=== PATIENT | female | born 1980 | race Caucasian/White ===

== ENCOUNTER → 2017-10-15 08:17 | Outpatient (CLI) | payer MEDICAID, SELFPAY ==
[2017-10-16 11:20] LABS: Hepatitis C Ab w Rflx HCV PCR Reactive (NEGAT)
[2017-10-19 14:27] LABS: HCV RNA Detection Quantitative Undetected IU/mL (UNDECT)
== END ==
PROVIDERS: PCP Nurse Practitioner Family; Visit Provider Nurse Practitioner Family
DX: Z86.19 Personal history of other infectious and parasitic diseases (principal)
CPT/HCPCS: 36415; 86803; 87522

== ENCOUNTER 2017-12-20 10:26 | Emergency (ER) | payer MEDICAID, SELFPAY ==
[2017-12-20 10:34] VITALS: BP 109/55; PULSE 86; RESP 16; TEMP 36.7; O2SAT 95
--- NOTE | 2017-12-20 10:47 | W.ED.GENAD ---
Discharge Plan Disposition Patient Disposition: HOME Condition: Improving Discharge Details Chief Complaint: FacialProb Clinical Impression: Odontalgia Primary Care Provider: Elodia Napier ED Provider: Alonzo Pereira Home Meds and New Rx's Prescriptions: New penicillin V potassium 500 mg tablet 500 mg PO TID 10 Days Qty: 30 RF: 0 Continue norgestimate-ethinyl estradiol [Ortho Tri-Cyclen LO (28)] 1 EACH tablet 1 tab-cap PO DAILY Qty: 3 RF: 5 buprenorphine-naloxone [Suboxone] 1 EACH film 1 ea Sublingual DAILY RF: 0 buprenorphine-naloxone [Suboxone] 1 EACH film 1 ea Sublingual DAILY RF: 0 trazodone 50 MG tablet 100 mg PO HS Qty: 90 RF: 4 clonidine HCl 0.1 MG tablet 0.1 mg PO HS Qty: 90 RF: 3 fluoxetine 40 MG capsule 40 mg PO DAILY Qty: 90 RF: 3 omeprazole 20 MG tablet,delayed release (DR/EC) 20 mg PO DAILY Qty: 90 RF: 3 acetaminophen [Acetaminophen Extra Strength] 500 MG tablet 1,000 mg PO TID Qty: 180 RF: 0 Discharge Instructions Instructions: Toothache (ED) Additional Instructions: You may follow-up with local dentistry. Please see enclosed sheet for dental resources. There are also dentist available at the [facility] in [facility]. Take antibiotics as prescribed. Apply moist, warm compress to area. Please continue warm, salt water gargles to aid in speed of healing. Take antibiotics as prescribed. Continue regular medications. May continue Tylenol as needed for increased pain. Medical Decision Making 37-year-old female with poor dentition and dental caries presents with a day and a half of left face swelling. She did describe some associated tearing of her eye but there is no evidence of a conjunctivitis. Consistent with odontogenic infection and will treat with a course of penicillin. Patient will reestablish dental care in this area. She is given a list for dental resources in the [facility]. HPI General Mode of arrival: ambulatory. Date/Time Provider Initiated Documentation: 12/20/17 10:28. Limitations to Documentation: no limitations. Information obtained by: patient. History of Present Illness 37 year old F presents to the emergency department with the chief complaint of Left face swelling, described as moderate, Quality is described as aching, and is localized to the face and left. Patient reports no radiation. Patient started experiencing this hour(s) and it has been constant. other things that improve symptom(s), (Tylenol and heat) Eating worsens symptoms . Patient notes denies fever/chills and headaches. HPI Narrative: Left face swelling Related Data Home Medications Medication Instructions Recorded Confirmed acetaminophen [Acetaminophen Extra 1,000 mg PO TID #180 tablet 08/25/16 12/20/17 Strength] norgestimate-ethinyl estradiol 1 tab-cap PO DAILY #3 pack 09/09/16 12/20/17 [Ortho Tri-Cyclen LO (28)] buprenorphine-naloxone [Suboxone] 1 ea SUBLINGUAL DAILY film 04/01/17 12/20/17 buprenorphine-naloxone [Suboxone] 1 ea SUBLINGUAL DAILY film 04/01/17 12/20/17 trazodone 100 mg PO HS #90 tab-cap 04/01/17 12/20/17 clonidine HCl 0.1 mg PO HS #90 tab-cap 10/15/17 12/20/17 fluoxetine 40 mg PO DAILY #90 tab-cap 10/15/17 12/20/17 omeprazole 20 mg PO DAILY #90 tab-cap 10/15/17 12/20/17 penicillin V potassium 500 mg PO TID 10 Days #30 tab 12/20/17 Previous Rx's Medication Instructions Recorded acetaminophen [Acetaminophen Extra 1,000 mg PO TID #180 tablet 08/25/16 Strength] trazodone 100 mg PO HS #90 tab-cap 04/01/17 clonidine HCl 0.1 mg PO HS #90 tab-cap 10/15/17 fluoxetine 40 mg PO DAILY #90 tab-cap 10/15/17 omeprazole 20 mg PO DAILY #90 tab-cap 10/15/17 penicillin V potassium 500 mg PO TID 10 Days #30 tab 12/20/17 Allergies Allergy/AdvReac Type Severity Reaction Status Date / Time latex AdvReac Intermediate Hives Verified 12/20/17 10:40 Pertussis Vaccines AdvReac Intermediate Skin Rash Verified 12/20/17 10:40 General Stated Complaint: FacialProb DEL: 3 Review of Systems Review of Systems 6 systems reviewed and otherwise negative PFSH Family History Mother Hyperthyroidism Mental disorder Neoplasm Father Substance abuse Maternal Aunt No problems noted. Maternal Aunt No problems noted. Maternal Aunt No problems noted. Grandfather Neoplasm Grandfather Neoplasm Other Liver disease Medical History Opioid dependence on agonist therapy (Chronic) Opioid use disorder (Chronic) Tobacco use disorder (Chronic) Irregular menstrual bleeding (Inactive 04/01/17) Hepatitis C antibody test positive (Chronic 04/10/15) Gastroesophageal reflux disease (Chronic) Counseling for control, oral contraceptives (Chronic 09/09/16) Anxiety and depression (Chronic) Hepatitis C antibody test positive Opioid abuse Tobacco use Social History Smoking/Tobacco Use Status: Current every day Surgical History section Exam Narrative Exam Narrative: GEN: awake, alert, oriented 3. Pleasant, well groomed, interactive. HEAD: Normocephalic, atraumatic ENT: Mucous membranes moist, oropharynx reveals dental caries, left maxilla buccal aspect swelling without fluctuance. The uvula is midline, no asymmetry or exudates, External ear exam unremarkable EYES: PERRL, EOMI NECK: Full ROM, no TOBIN, no menigismus CHEST/RESP: Nontender, clear to auscultation bilateral, no wheeze/rhonchi/rales CARDIOVASCULAR: RRR, no murmur, rub randell. 2+ Rad pulse bilateral Neuro: Grossly normal neurologic exam, conversant, interactive. Psych: Speech fluent, thoughts congruent, affect normal Course Vital Signs Temperature 36.7 C 12/20/17 10:34 Pulse 86 12/20/17 10:34 Respiratory Rate 16 12/20/17 10:34 Blood Pressure 109/55 L 12/20/17 10:34 Pulse Oximetry 95 12/20/17 10:34 Temperature 36.7 C 12/20/17 10:34 Temperature Source Skin 12/20/17 10:34 Pulse 86 12/20/17 10:34 Respiratory Rate 16 12/20/17 10:34 Respiratory Effort 12/20/17 10:37 Blood Pressure 109/55 L 12/20/17 10:34 Pulse Oximetry 95 12/20/17 10:34 Pain Level 8 12/20/17 10:34
--- NOTE | 2017-12-20 10:50 | ED.GENADUL_ITS ---
Discharge Plan Disposition Patient Disposition: HOME Condition: Improving Discharge Details Chief Complaint: FacialProb Clinical Impression: Odontalgia Primary Care Provider: Elodia Napier ED Provider: Alonzo Pereira Home Meds and New Rx's Prescriptions: New penicillin V potassium 500 mg tablet 500 mg PO TID 10 Days Qty: 30 RF: 0 Continue norgestimate-ethinyl estradiol [Ortho Tri-Cyclen LO (28)] 1 EACH tablet 1 tab-cap PO DAILY Qty: 3 RF: 5 buprenorphine-naloxone [Suboxone] 1 EACH film 1 ea Sublingual DAILY RF: 0 buprenorphine-naloxone [Suboxone] 1 EACH film 1 ea Sublingual DAILY RF: 0 trazodone 50 MG tablet 100 mg PO HS Qty: 90 RF: 4 clonidine HCl 0.1 MG tablet 0.1 mg PO HS Qty: 90 RF: 3 fluoxetine 40 MG capsule 40 mg PO DAILY Qty: 90 RF: 3 omeprazole 20 MG tablet,delayed release (DR/EC) 20 mg PO DAILY Qty: 90 RF: 3 acetaminophen [Acetaminophen Extra Strength] 500 MG tablet 1,000 mg PO TID Qty: 180 RF: 0 Discharge Instructions Instructions: Toothache (ED) Additional Instructions: You may follow-up with local dentistry. Please see enclosed sheet for dental resources. There are also dentist available at the [facility] in [facility]. Take antibiotics as prescribed. Apply moist, warm compress to area. Please continue warm, salt water gargles to aid in speed of healing. Take antibiotics as prescribed. Continue regular medications. May continue Tylenol as needed for increased pain. Medical Decision Making 37-year-old female with poor dentition and dental caries presents with a day and a half of left face swelling. She did describe some associated tearing of her eye but there is no evidence of a conjunctivitis. Consistent with odontogenic infection and will treat with a course of penicillin. Patient will reestablish dental care in this area. She is given a list for dental resources in the [facility]. HPI General Mode of arrival: ambulatory . Date/Time Provider Initiated Documentation: 12/20/17 10:28 . Limitations to Documentation: no limitations . Information obtained by: patient . History of Present Illness 37 year old F presents to the emergency department with the chief complaint of Left face swelling, described as moderate, Quality is described as aching, and is localized to the face and left. Patient reports no radiation. Patient started experiencing this hour(s) and it has been constant. other things that improve symptom(s), (Tylenol and heat) Eating worsens symptoms . Patient notes denies fever/chills and headaches. HPI Narrative: Left face swelling Related Data Home Medications Medication Instructions Recorded Confirmed acetaminophen [Acetaminophen Extra 1,000 mg PO TID #180 tablet 08/25/16 12/20/17 Strength] norgestimate-ethinyl estradiol 1 tab-cap PO DAILY #3 pack 09/09/16 12/20/17 [Ortho Tri-Cyclen LO (28)] buprenorphine-naloxone [Suboxone] 1 ea SUBLINGUAL DAILY film 04/01/17 12/20/17 buprenorphine-naloxone [Suboxone] 1 ea SUBLINGUAL DAILY film 04/01/17 12/20/17 trazodone 100 mg PO HS #90 tab-cap 04/01/17 12/20/17 clonidine HCl 0.1 mg PO HS #90 tab-cap 10/15/17 12/20/17 fluoxetine 40 mg PO DAILY #90 tab-cap 10/15/17 12/20/17 omeprazole 20 mg PO DAILY #90 tab-cap 10/15/17 12/20/17 penicillin V potassium 500 mg PO TID 10 Days #30 tab 12/20/17 Previous Rx's Medication Instructions Recorded acetaminophen [Acetaminophen Extra 1,000 mg PO TID #180 tablet 08/25/16 Strength] trazodone 100 mg PO HS #90 tab-cap 04/01/17 clonidine HCl 0.1 mg PO HS #90 tab-cap 10/15/17 fluoxetine 40 mg PO DAILY #90 tab-cap 10/15/17 omeprazole 20 mg PO DAILY #90 tab-cap 10/15/17 penicillin V potassium 500 mg PO TID 10 Days #30 tab 12/20/17 Allergies Allergy/AdvReac Type Severity Reaction Status Date / Time latex AdvReac Intermediate Hives Verified 12/20/17 10:40 Pertussis Vaccines AdvReac Intermediate Skin Rash Verified 12/20/17 10:40 General Stated Complaint: FacialProb DEL: 3 Review of Systems Review of Systems 6 systems reviewed and otherwise negative PFSH Family History Mother Hyperthyroidism Mental disorder Neoplasm Father Substance abuse Maternal Aunt No problems noted. Maternal Aunt No problems noted. Maternal Aunt No problems noted. Grandfather Neoplasm Grandfather Neoplasm Other Liver disease Medical History Opioid dependence on agonist therapy (Chronic) Opioid use disorder (Chronic) Tobacco use disorder (Chronic) Irregular menstrual bleeding (Inactive 04/01/17) Hepatitis C antibody test positive (Chronic 04/10/15) Gastroesophageal reflux disease (Chronic) Counseling for control, oral contraceptives (Chronic 09/09/16) Anxiety and depression (Chronic) Hepatitis C antibody test positive Opioid abuse Tobacco use Social History Smoking/Tobacco Use Status: Current every day Surgical History section Exam Narrative Exam Narrative: GEN: awake, alert, oriented 3. Pleasant, well groomed, interactive. HEAD: Normocephalic, atraumatic ENT: Mucous membranes moist, oropharynx reveals dental caries, left maxilla buccal aspect swelling without fluctuance. The uvula is midline, no asymmetry or exudates, External ear exam unremarkable EYES: PERRL, EOMI NECK: Full ROM, no TOBIN, no menigismus CHEST/RESP: Nontender, clear to auscultation bilateral, no wheeze/rhonchi/rales CARDIOVASCULAR: RRR, no murmur, rub randell. 2+ Rad pulse bilateral Neuro: Grossly normal neurologic exam, conversant, interactive. Psych: Speech fluent, thoughts congruent, affect normal Course Vital Signs Temperature 36.7 C 12/20/17 10:34 Pulse 86 12/20/17 10:34 Respiratory Rate 16 12/20/17 10:34 Blood Pressure 109/55 L 12/20/17 10:34 Pulse Oximetry 95 12/20/17 10:34 Temperature 36.7 C 12/20/17 10:34 Temperature Source Skin 12/20/17 10:34 Pulse 86 12/20/17 10:34 Respiratory Rate 16 12/20/17 10:34 Respiratory Effort 12/20/17 10:37 Blood Pressure 109/55 L 12/20/17 10:34 Pulse Oximetry 95 12/20/17 10:34 Pain Level 8 12/20/17 10:34
== END 2017-12-20 11:01 | disposition home or self-care (01) ==
PROVIDERS: Emergency Provider Emergency Medicine; PCP Nurse Practitioner Family
DX: R68.84 Jaw pain (principal); K04.7 Periapical abscess without sinus; K02.9 Dental caries, unspecified
CPT/HCPCS: 99283

== ENCOUNTER 2018-09-15 14:58 | Outpatient (CLI) | payer MEDICAID, SELFPAY ==
--- NOTE | 2018-09-15 16:35 | CCCE_ITS ---
Date of service: 09/15/18 Time of Service: 16:36 Comprehensive Care Clinic Note Note: [facility] [address] [place] [address] [facility] Name: Radha Murdock Date of : 1980 Date of Service: 09/15/2018 SUBJECTIVE: Radha made an appointment today to request further screening testing to be sure that the HCV viral load is remaining negative and/or she has not been re-infected as her significant other and sexual partner remains chronic active HCV. They do not use barrier protection. She had a negative HCV in in 2017 without treatment and it was felt she cleared the virus after delivery of her second child. Her child remains negative. The initial testing with first + HCB Ab in 2015 with a viral load of 7 million when she was . She was n ever an IV user and so her OB felt she had sexual transmission because her sexual partner is + ROS: She states she is feeling fairly well physically, she remains with some Mood swings and anxiety and feels her medications are fairly stable at this time but she has not been able to remain gainfully employed and has filed for disability ? mainly on the basis of her bipolar dx. Past Medical/Surgical/Psychiatric History: Opiate Use Disorder is in remission with MAT w Suboxone through [facility]. Mood disorder and anxiety/PTSD w RXing by PCP and she has outside counseling. Has had ZOO VETERINARIAN abnormalities and is under the care of [facility]. She is S/P a C section. , SAB 1, TAB 1, 1 C section, 2 living children. Currently sexually active taking OCP but no barrier. Takes her OCPs regularly. Menses times w pills. Allergies/Sensitivities: NKDA Current Medications: Prozac 40 mg a day, Suboxone 6 mg a day, Trazadone 50 mg a day, Clonidine 0.2 mg bid, OCPs, has had a PPI in the past. Social History: Employment / Type of Work: applying for disability due to unable to remain gainfully employed on the basis of her mood disorder. Income: Means of financial support if not employed: [employer] and sig other. Health Insurance: Medicaid Substance Abuse History: Tobacco Smoker, Type: cigarettes Amount: ? ppd. ETOH: None. Illicit Drug Use: None for years- No Hx IVDU/Treatment: Suboxone MAT since 2013 now with lowered maintenance dose of 6 mg since 2017. Stable in treatment and has take-home privileges in the [facility]UB of 2 weeks. Other Psychosocial Considerations: Her 2 children are in DCF custody, were living with her Mother in [place], [place] but she recently learned that her older son C/O abusive treatment by his Grandmother and he and his younger brother are going to be removed from that home. Radha is afraid she will not be able to have contact with them and she is working with her rifle case repairer to get some continuity of contact established. This is very stressful for her. She states she has not had drug craving with this stress and does not feel at risk for relapse. Her counselor for MAT has been seeing her more frequently for support. Family History: Addiction Immunization History: Unclear at this time. [facility] may have given her some immunization in the last couple years. Health Maintenance/ID Screening: PPD: negative in 2017 PAP: Cervical: UTD and last WNL Mammograms: Has had and told OK Colonoscopy: NA OBJECTIVE HT: 5?2? WT: 104# BMI: 19, Temp: 98/3, Pulse: 70, Resp: 14, BP: 102/66 General: AAOx4, AINAD Skin: Skin W/D no rash/lesions, good color Eyes: non icteric Cardiac: RRR, No MCRG Chest/Lungs: Clear Abdomen: NABS, ND, NT, no ogm Extremities: No edema Musculoskeletal: No swollen, hot joints Neuro: gait strong and steady, no tremor Psych: well dressed, eye contact good, speech clear, coherent w normal pressure, Mood and affect normal, insight and judgment good. 04/03/2016, 04/01/2017, 10/15/2017 [facility] Lab results HCV PCR ? undetected other results:04/03/2016 HAV Ab neg, HBV s AB neg, HBV cAb neg, HBV Ag neg, RPR neg, HIV neg. ASSESSMENT: H/O + HCV infection w no Tx Hx but an undetectable viral load in 2017. She has had unprotected intercourse with her partner who remains HCV chronic + since last tested. PLAN: She is given a lab order form to take to the [facility] lab to check CBCD, CMP, HCV RNA PCR Quant, other serologies. Advised to use condoms consistently and ask her sexual partner to Consider getting into treatment and be retested. She agrees to remain illicit substance free and stable in MAT, to contemplate smoking cessation and will have PCP F/U for HM and RXing for her medications as well as continuing counseling for the mood disorder and PTSD. She may need immunizations and she will ask her PCP to check on this. Lab Work: I will contact her with the results when available and any further F/U will be scheduled if needed. Provider of Care: Bella Liz NP Signature: Date:
== END 2018-09-15 15:18 ==
PROVIDERS: PCP Nurse Practitioner Family; Visit Provider Nurse Practitioner Family
DX: B18.2 Chronic viral hepatitis C (principal); F11.20 Opioid dependence, uncomplicated; Z79.899 Other long term (current) drug therapy
CPT/HCPCS: 99213

== ENCOUNTER 2021-10-30 02:43 | Outpatient (CLI) | payer MEDICAID, SELFPAY ==
[2021-10-31 10:34] LABS: Hepatitis C Ab w Rflx HCV PCR Reactive (Negative)
[2021-11-01 13:52] LABS: HCV RNA Qualitative Undetected (Undetected)
== END 2021-10-30 02:44 | disposition home or self-care (01) ==
LOC: LBO 02:43
PROVIDERS: Visit Provider Advanced Practice Midwife
DX: R76.8 Other specified abnormal immunological findings in serum (principal)
CPT/HCPCS: 36415; 86803; 87522

== ENCOUNTER 2021-11-14 03:55 | Outpatient (CLI) | payer MEDICAID, SELFPAY ==
[2021-11-14 12:13] LABS: Kit/Specimen SENT
[2021-11-14 12:18] LABS: Abs Immature Grans 0.02 10^3/uL (0.0-0.06); Absolute Basophil Count 0.06 10^3/uL (0.0-0.2); Absolute Eosinophil Count 0.11 10^3/uL (0.0-0.7); Absolute Lymphocyte Count 1.98 10^3/uL (1.2-3.4); Absolute Monocyte Count 0.46 10^3/uL (0.1-0.8); Absolute Neutrophil Count 5.15 10^3/uL (1.2-6.7); Basophils % 0.8; Eosinophils % 1.4; HCT 36.3 % (36.0-46.0); HGB 12.6 g/dL (11.2-15.7); Immature Grans % 0.3; Lymphocytes % 25.4; MCH 31.3 pg (27.0-33.0); MCHC 34.7 % (32.0-36.0); MCV 90 fL (80-95); MPV 11.3 fL (8.0-11.0); Monocytes % 5.9; Neutrophils % 66.2; Platelet Count 163 10^3/uL (130-400); RBC 4.03 10^6/uL (3.93-5.22); RDW 11.6 % (11.7-14.6); RDW-SD 38.1 fL; WBC 7.78 10^3/uL (4.4-10.8)
[2021-11-14 13:06] LABS: TSH (W/Ref FT4) 1.01 uIU/mL (0.36-3.74)
[2021-11-15 09:28] LABS: Hepatitis B Surface Ag Negative (Negative)
[2021-11-15 09:52] LABS: HIV-1/2 Ag & Ab Screen Negative (Negative)
[2021-11-15 10:38] LABS: Rubella IgG Ab (UVM) Positive (See Note); Varicella IgG Antibody Positive (See Note)
[2021-11-15 11:37] LABS: Hepatitis C Ab w Rflx HCV PCR Reactive (Negative)
[2021-11-16 13:04] LABS: Syphilis IgG w/Reflex Nonreactive (Nonreactive)
[2021-11-18 13:51] LABS: HCV RNA Qualitative Undetected (Undetected)
[2021-12-04 02:53] LABS: Result Summary NEGATIVE; Specimen WB Whole Blood
== END 2021-11-14 03:56 | disposition home or self-care (01) ==
LOC: LBO 03:55
PROVIDERS: Visit Provider Advanced Practice Midwife
DX: O09.521 Supervision of elderly multigravida, first trimester; F32.9 Major depressive disorder, single episode, unspecified; F41.9 Anxiety disorder, unspecified
CPT/HCPCS: 81220; 81222; 86787; 86803; 86850; 86900; 86901; 87340; 87389; 87522; 84443; 85025; 86762; 86780

== ENCOUNTER 2021-11-14 13:40 | Outpatient (REF) | payer MEDICAID, SELFPAY ==
--- NOTE | 2021-11-14 10:50 | PAPFT_PTH ---
PATIENT: Radha Murdock LOC: [facility] U#:[id number] AGE/SX: 41/F ROOM: RE11/14/[address]: Jessica Petty : 1980 BED: DIS: 11/14/2021 SPEC #: [id number] RECD: 11/14/21 18:24 STATUS: TONI REMack #: [id number] EDMAR: 11/14/21 10:[address]: Jessica Petty DEPT: [facility] Cytology RECD BY: Yajaira Le Tissues: 1 - CX/ENDOCX FOR PAP SMEARS Procedures: PAP THIN PREP/UVM Screening HPV DNA PROBE Comments: [id number]
[2021-11-15 15:16] LABS: Chlamydia Result Negative (Negative); GC Result Negative (Negative)
== END 2021-11-14 13:41 | disposition home or self-care (01) ==
LOC: LBN 13:40
PROVIDERS: Visit Provider Advanced Practice Midwife
DX: Z34.91 Encounter for supervision of normal pregnancy, unspecified, first trimester (principal); Z12.4 Encounter for screening for malignant neoplasm of cervix; Z11.51 Encounter for screening for human papillomavirus (HPV)
CPT/HCPCS: 80307; 87491; 87591; 88142; 87086; 87480; 87510; 87624; 87660

== ENCOUNTER 2022-02-07 11:57 | Outpatient (REF) | payer MEDICAID, SELFPAY | END 2022-02-07 11:58 | disposition home or self-care (01) | LOC: LBN 11:57 | PROVIDERS: Visit Provider Obstetrics & Gynecology | DX: Z34.92 Encounter for supervision of normal pregnancy, unspecified, second trimester (principal) | CPT/HCPCS: 87086 ==

== ENCOUNTER 2022-03-07 12:57 | Outpatient (REF) | payer MEDICAID, SELFPAY ==
[2022-03-07 13:05] LABS: *AMPHETAMINES SCREEN URINE Negative (Negative); *BARBITURATES SCREEN URINE Negative (Negative); *BENZODIAZEPINES SCREEN URINE Negative (Negative); Cannabinoids THC Positive (Negative); Cocaine Screen,Urine Negative (Negative); METHADONE URINE SCREEN Negative (Negative); OPIATES URINE SCREEN Negative (Negative)
[2022-03-07 13:08] LABS: Tricyclic Antidepressants Negative (Negative)
[2022-03-14 11:15] LABS: Buprenorphine 399.1 ng/mL (Cutoff: 5.0)
== END 2022-03-07 12:58 | disposition home or self-care (01) ==
LOC: LBN 12:57
PROVIDERS: Visit Provider Advanced Practice Midwife
DX: O09.522 Supervision of elderly multigravida, second trimester (principal); O26.892 Other specified pregnancy related conditions, second trimester; R30.0 Dysuria; R35.0 Frequency of micturition; Z3A.26 26 weeks gestation of pregnancy
CPT/HCPCS: 80307; 80348; 87086

== ENCOUNTER 2022-03-21 01:24 | Outpatient (CLI) | payer MEDICAID, SELFPAY ==
[2022-03-21 09:47] LABS: HCT 35.6 % (36.0-46.0); HGB 12.2 g/dL (11.2-15.7); MCH 31.4 pg (27.0-33.0); MCHC 34.3 % (32.0-36.0); MCV 92 fL (80-95); MPV 11.3 fL (8.0-11.0); Platelet Count 190 10^3/uL (130-400); RBC 3.89 10^6/uL (3.93-5.22); RDW 12.2 % (11.7-14.6); WBC 7.96 10^3/uL (4.4-10.8)
[2022-03-24 13:44] LABS: AFP 349.5 ng/mL; Calculated age at EDD 39 years; GA used in risk estimate Scan estimate; IVF Pregnancy No; Initial or repeat testing Initial testing; Insulin dependent diabetes No; Maternal Weight 101 lbs; Number of Fetuses 1; Prev Pregnancy w/NTD No
== END 2022-03-21 01:25 | disposition home or self-care (01) ==
LOC: LBO 01:24
PROVIDERS: Obstetrics & Gynecology; Visit Provider Advanced Practice Midwife
DX: Z34.92 Encounter for supervision of normal pregnancy, unspecified, second trimester (principal); O99.332 Smoking (tobacco) complicating pregnancy, second trimester; F17.210 Nicotine dependence, cigarettes, uncomplicated; Z3A.28 28 weeks gestation of pregnancy
CPT/HCPCS: 36415; 85027; 82105

== ENCOUNTER 2022-03-21 10:58 | Outpatient (CLI) | payer MEDICAID, SELFPAY ==
--- NOTE | 2022-03-21 10:00 | DI.US_ITS ---
Exam(s) US OB 2-3 TRIMESTER EXAM: US OB 2-3 TRIMESTER CLINICAL HISTORY: Size less than dates O09.90 F12.90 CANNABIS USER B19.20 HEP C F11.99 OPIOID. TECHNIQUE: Transabdominal obstetrical ultrasound performed. COMPARISON: US PELVIS TRANSVAG from 04/14/2017 FINDINGS: Number of fetuses: 1 position: CEPHALIC heart rate: 153bpm Placental location: Grade 1 ANTERIOR and fundal. No evidence of previa. Amniotic fluid index: Amount of fluid is within normal limits. ANATOMICAL SURVEY: Within normal limits. BIOMETRIC DATA: BPD: 7.12cm, 28weeks 4days HC: 26.91cm, 29weeks 2days AC: 24.91cm, 29weeks 1day FL: 5.6cm, 29weeks 3days Cisterna magna: 5.1mm Cerebellum: 3.45cm EFW: 1,355.63g, 3lb, 62% Composite Age: 29weeks 1day [place]: 06/05/2022 Heart Rate: 153bpm IMPRESSION: 1. Single live intrauterine gestation as above. 2. Normal anatomic survey. DATA REPOSITORY:
== END 2022-03-21 11:18 ==
LOC: DI 10:59
PROVIDERS: Visit Provider Obstetrics & Gynecology
DX: Z34.93 Encounter for supervision of normal pregnancy, unspecified, third trimester (principal); O09.523 Supervision of elderly multigravida, third trimester; O09.293 Supervision of pregnancy with other poor reproductive or obstetric history, third trimester; O98.413 Viral hepatitis complicating pregnancy, third trimester; B19.20 Unspecified viral hepatitis C without hepatic coma; O99.323 Drug use complicating pregnancy, third trimester; F12.90 Cannabis use, unspecified, uncomplicated; F11.90 Opioid use, unspecified, uncomplicated; Z3A.28 28 weeks gestation of pregnancy
CPT/HCPCS: 76805

== ENCOUNTER 2022-03-21 11:02 | Outpatient (CLI) | payer MEDICAID, SELFPAY ==
[2022-03-21 12:59] LABS: Glucose,1 Hr (Glucola) 70 mg/dL (80-140)
== END 2022-03-21 11:03 | disposition home or self-care (01) ==
LOC: LBO 11:02
PROVIDERS: Advanced Practice Midwife; Visit Provider Obstetrics & Gynecology
DX: Z34.90 Encounter for supervision of normal pregnancy, unspecified, unspecified trimester (principal)
CPT/HCPCS: 36415; 82950

== ENCOUNTER 2022-03-21 11:37 | Outpatient (REF) | payer MEDICAID, SELFPAY ==
[2022-03-21 12:59] LABS: *AMPHETAMINES SCREEN URINE Negative (Negative); *BARBITURATES SCREEN URINE Negative (Negative); *BENZODIAZEPINES SCREEN URINE Negative (Negative); Cannabinoids THC Positive (Negative); Cocaine Screen,Urine Negative (Negative); METHADONE URINE SCREEN Negative (Negative); OPIATES URINE SCREEN Negative (Negative)
[2022-03-21 13:00] LABS: Tricyclic Antidepressants Negative (Negative)
== END 2022-03-21 11:38 | disposition home or self-care (01) ==
LOC: LBN 11:37
PROVIDERS: Visit Provider Obstetrics & Gynecology
DX: O26.899 Other specified pregnancy related conditions, unspecified trimester; R30.0 Dysuria
CPT/HCPCS: 80307; 80348; 87086

== ENCOUNTER 2022-05-08 08:59 | Outpatient (CLI) | payer MEDICAID, SELFPAY | END 2022-05-08 09:00 | disposition home or self-care (01) | PROVIDERS: Visit Provider Obstetrics & Gynecology ==

== ENCOUNTER 2022-05-15 08:48 | Outpatient (CLI) | payer MEDICAID, SELFPAY ==
--- NOTE | 2022-05-15 | DI.US_ITS ---
Exam(s) US OB MARTINA, WEIGHT BIO PROF. EXAM: US OB MARTINA, WEIGHT BIO PROF. CLINICAL HISTORY: nonreassuring NST. TECHNIQUE: Transabdominal obstetrical ultrasound performed. COMPARISON: US US OB 2-3 TRIMESTER from 03/21/2022 FINDINGS:: Number of fetuses: One. position: Vertex. Placental location: Anterior no evidence of previa. BIOMETRIC DATA: BPD: 92mm = 37+ 3 weeks HC: 337mm = 38+ 4 weeks AC: 324mm = 36+ 2 weeks FL: 69 mm = 35+2 weeks EFW: 2934 Gms = 53% Composite Age: 36+ 6 weeks EDC: 06 June 2022 Heart Rate: 115BPM Amniotic fluid index: 13.3 cm. Amount of fluid is visually within normal limits. Biophysical profile normal with score 8/8 IMPRESSION: size and weight are within the expected range. Normal biophysical profile. Normal MARTINA. DATA REPOSITORY:
[2022-05-15 09:31] VITALS: BP 112/67; PULSE 76; TEMP 36.7
[2022-05-15 11:20] LABS: HGB 12.5 g/dL (11.2-15.7)
[2022-05-15 11:54] VITALS: BP 112/67; PULSE 76
[2022-05-15 12:12] LABS: *AMPHETAMINES SCREEN URINE Negative (Negative); *BARBITURATES SCREEN URINE Negative (Negative); *BENZODIAZEPINES SCREEN URINE Negative (Negative); Cannabinoids THC Positive (Negative); Cocaine Screen,Urine Negative (Negative); METHADONE URINE SCREEN Negative (Negative); OPIATES URINE SCREEN Negative (Negative)
[2022-05-15 12:16] LABS: Tricyclic Antidepressants Negative (Negative)
--- NOTE | 2022-05-15 12:49 | W.OBNST ---
Date of service: 05/15/22 Time of Service: 12:00 NST Evaluation Reason for NST Reasons for Nonstress Test: ADVANCED MATERNAL AGE Gestational Age Gestational Age in Weeks and Days: 36 Weeks and 3Days Test and Monitor Explained Test/Monitor Explained: Test Explained, Monitor Explained and Patient Verbalized Understanding Vital Signs Blood Pressure: 112/67 Pulse: 76 Temperature: 98.1 F NST Information Date on Monitor: 05/15/22 Time on Monitor: 09:30 NST Interventions: PO Hydration NST Evaluation Patient States Movement: Present FHR Baseline: 120 Variability: Moderate 6-25 bpm Accelerations: 15x15 Decelerations: Early Note N/A (Official Growth and BPP done through DI) NST Note Note: See note NST Reviewed and Verified by: Melody Miranda
[2022-05-15 12:51] VITALS: BP 112/67; PULSE 76; TEMP 36.7
== END 2022-05-15 12:55 | disposition home or self-care (01) ==
LOC: BCD 08:48 → OBS 09:28
PROVIDERS: Obstetrics & Gynecology; Visit Provider Obstetrics & Gynecology
DX: O09.523 Supervision of elderly multigravida, third trimester (principal); Z3A.36 36 weeks gestation of pregnancy
CPT/HCPCS: 59025; 36415; 80307; 76819; 85018; 87081

== ENCOUNTER 2022-05-27 07:20 | Outpatient (CLI) | payer MEDICAID, SELFPAY ==
[2022-05-27 12:06] VITALS: BP 110/58; PULSE 77; TEMP 36.9
[2022-05-27 12:08] VITALS: BP 110/58; PULSE 77
--- NOTE | 2022-05-27 12:41 | W.OBNST ---
Date of service: 05/27/22 Time of Service: 13:31 NST Evaluation Reason for NST Reasons for Nonstress Test: ADVANCED MATERNAL AGE Gestational Age Gestational Age in Weeks and Days: 38 Weeks and 1Days Test and Monitor Explained Test/Monitor Explained: Test Explained, Monitor Explained and Patient Verbalized Understanding Vital Signs Blood Pressure: 110/58 Pulse: 77 Temperature: 98.4 F NST Information Time on Monitor: 12:11 Contraction Frequency: Irregular NST Evaluation FHR Baseline: 130 Variability: Moderate 6-25 bpm Accelerations: 15x15 Note N/A NST Note Note: Category 1, reactive NST NST Reviewed and Verified by: Constance Waldrop
[2022-05-27 13:14] VITALS: BP 110/58; PULSE 77; TEMP 36.9
[2022-05-27 13:31] VITALS: BP 110/58; PULSE 77; TEMP 36.9
== END 2022-05-27 12:55 | disposition home or self-care (01) ==
LOC: BCD 07:21 → OBS 09:05 → BCD 12:03 → OBS 12:05
PROVIDERS: Visit Provider Obstetrics & Gynecology
DX: O09.523 Supervision of elderly multigravida, third trimester (principal); Z3A.38 38 weeks gestation of pregnancy
CPT/HCPCS: 59025

== ENCOUNTER 2022-06-02 00:36 | Inpatient (IN) | payer MEDICAID, SELFPAY ==
[2022-06-02] VITALS (83 sets, daily range): BP systolic 99–140; BP diastolic 51–82; PULSE 38–108; RESP 10–40; TEMP 34.9–36.7; O2SAT 90–100; BMI 19.5
--- NOTE | 2022-06-02 | DI.RAD_ITS ---
Exam(s) XR PORTABLE CHEST AP POST LINE EXAM: XR PORTABLE CHEST AP POST LINE CLINICAL HISTORY: Right IJ placement.. TECHNIQUE: 2D digital imaging was performed. COMPARISON: No exams were available for comparison FINDINGS: Single AP portable view. Distal tip of the endotracheal tube is in satisfactory position above the marlene. Distal tip of the right jugular central line is at the junction of the SVC and right atrium. Heart size normal. Mediastinum not widened. Lungs are clear. No infiltrates nor obvious pleural effusions. IMPRESSION: No acute pulmonary findings on this single AP portable view of the chest. ETT in satisfactory position. DATA REPOSITORY: RADIATION DOSE DELIVERED:
--- NOTE | 2022-06-02 00:07 | NUR.NOTE ---
checked out by Dr. Bonds and went directly to OB.Nursing Note:
[2022-06-02] MEDS: Terbutaline 1 MG/ML VIAL 0.25 MG SC (01:01)
--- NOTE | 2022-06-02 01:02 | W.PM.OBHPL1 ---
Date of service: 06/02/22 Time of Service: 01:03 Assessment and Plan Assessment and plan (1) Uterine contractions: Status: Acute Assessment and plan: Repeat CS planned. OR staff and anesthesia notified and on their way. (2) section: OB-HPI Labor/Delivery History of Present Illness Reason for Visit: Delivery Chief Complaint: Uterine Contractions. [place] Calculator Estimated Delivery Date Method WG Current Estimate 06/09/22 Ultrasound #1 Other Estimates 06/04/22 LMP (Certain) Delivery Date-Baby A 06/02/22 39w 0d Comments: Pt had been tre all day. They became stronger and she felt more pelvic pressure so she called the ambulance. History of Present Expected Delivery Route/Plan repeat C/S #3 - MD MERCHANT/natasha - Vinay Pena (2nd child together) Specific Issues/Plan 1. History of alcohol abuse and current Opiate dependence: [facility] for MAT (subutex) - UDS sent 03/07/22- Pos. THC, Repeat UDS 05/15/22 . Reports daily MJ use for nausea - complete POSC 2. Smoker- 1 PPD. 3. Anxiety and depression - fluoxetine and clonidine 3a. Ref'ed to [facility], telehealth appt done 10/22/21 3b. May benefit from SMART team enrollment. Undecided 02/07/2022 4. Previous x 2: desires repeat C/S 5. Hepatitis C - RNA titer drawn 10/30/21 - undetectable viral load 6. Underweight, BMI 18 7. GERD- takes omeprazole daily 8. AMA - ASA recommended due to previous IUGR baby and AMA. - Radha cancelled US and consult at [facility]. referral re-placed - Genetic testing options reviewed - panorama, CF neg 11/14/21 and AFP- not drawn - Growth sono 05/15/22: EFW 53%ile 9. Social Issues: - Loss of custody of her two children and DCF removal of her second child. - Transportation issues- using RCT, agrees to SMART team. Has been in contact with Elsa Marcus and Lian Khan ( 09/2021) - Housing -referred to Madi[facility] for help with finding 2 bedroom home. Review of Systems Constitutional Constitutional: Reports system reviewed and no additional complaints, except as documented Gastrointestinal Gastrointestinal: Reports vomiting Genitourinary Genitourinary: Reports system reviewed and no additional complaints, except as documented Musculoskeletal Comments: No regular contractions PFSH All Active Problems (Updated 06/02/22 @ 04:35 by Melody Miranda MD) Uterine contractions (Acute) Anxiety and depression (Chronic) Pt reports she has also been diagnosed with borderline personality d/o Fluoxetine, clonidine Gastroesophageal reflux disease (Chronic) Hepatitis C antibody test positive (Chronic 04/10/15) Undetected RNA level 04/2016, 03/2017 Tobacco use disorder (Chronic) Opioid dependence on agonist therapy (Chronic) Subutex 6 mg PO daily (Acute) Housing or economic circumstances (Acute) Stress (Acute) Other specified counseling (Acute) Legal Concerns related to past DCF involvement with their son, Norman 10/03/15 who has lived with [facility] [place] since Multigravida of advanced maternal age in first trimester (Acute) Marijuana smoker (Acute) Medical History (Updated 06/02/22 @ 04:35 by Melody Miranda MD) History of abnormal cervical Pap smear History of alcoholism History of marijuana use Sciatica (03/20/09) Surgical History section 2006 failure to dilate Family History Mother Hyperthyroidism Mental disorder Manic depressive Neoplasm Ovarian CA Father Substance abuse Maternal Aunt , Breast CA No problems noted. Maternal Aunt , Breast CA No problems noted. Maternal Aunt , Maternal No problems noted. Grandfather , Cancer Neoplasm Prostate or colon? Grandfather , Liver CA Neoplasm Liver CA Other Liver disease Social History Smoking/Tobacco Use Status: Current every day Tobacco Type: cigarettes Smoking risk assessment performed?: Yes Alcohol Intake: former Drug use: Current Sobriety Substance use type: marijuana and opiates Details: MAT treatment (Subutex) Daily MJ use Do you feel safe in your relationship?: Yes History History 6 Para 2 Hx # Term Pregnancies 2 Multiple births 0 Hx # Pregnancies 0 Ectopic pregnancies 0 AB induced 1 Hx Number of Living Children 2 AB spontaneous 2 Past Pregnancies Del. Date GA/Weeks # Preg Succ Route Wgt Sex Labor Lgth Anesthesia Location Prov Complic 11/07/06 40 No Yes 5 lb 5 oz Male Weeks 10/03/15 39 No Yes 6 lb [address] Lucas [place] 06/02/22 39 No Yes 6 lb 1 oz [place] Delivery Date: 11/07/06 Last Updated by: Jessica Petty CNM PROM and IOL. Bertha Nowak for FTP Delivery Date: 10/03/15 Last Updated by: Jessica Petty CNM Norman, Hep C viral load, Delivery Date: 06/02/22 Last Updated by: Melody Miranda MD Spontaneous labor prior to CS with STAT CS due to distress complicated by pelvic side wall hematoma. Meds Allergies and Home Medications Allergies Allergy/AdvReac Type Severity Reaction Status Date / Time latex AdvReac Intermediate Hives Verified 05/05/22 12:17 Pertussis Vaccines AdvReac Intermediate Skin Rash Verified 05/05/22 12:17 Home Medications Medication Instructions Recorded Confirmed Type acetaminophen 500 mg tablet 1,000 mg PO TID #180 tabs 08/25/16 05/27/22 Rx (Acetaminophen Extra Strength) fluoxetine 40 mg capsule 40 mg PO DAILY #90 tab-caps 10/15/17 05/27/22 Rx clonidine HCl 0.1 mg tablet 0.1 mg PO HS PRN 10/18/21 05/27/22 History trazodone 50 mg tablet 50 mg PO HS 10/18/21 05/27/22 History docusate sodium 100 mg capsule 100 mg PO BID #60 caps 10/30/21 05/27/22 Rx (Colace) buprenorphine HCl 8 mg sublingual 8 mg sublingual DAILY 11/14/21 05/27/22 History tablet aspirin 81 mg capsule 81 mg PO DAILY #90 caps 11/21/21 05/27/22 Rx omeprazole 40 mg capsule,delayed 40 mg PO DAILY #90 caps 12/19/21 05/27/22 Rx release ondansetron 4 mg disintegrating 4 mg PO BID #30 tabs 03/07/22 05/27/22 Rx tablet Exam Physical Exam Vital signs: Pulse BP Pulse Ox 39 L 131/60 99 06/02/22 00:50 06/02/22 00:50 06/02/22 00:41 Vital Signs Reviewed: Yes Detailed Labor and Delivery Exam Dilation: 3 Effacement (%): 90 Sims Score: Cervical Points Exam 0 1 2 3 Dilation Closed 1-2cm 3-4 cm 5-6cm Effacement 0-30% 40-50% 60-70% 80% Consistency Firm Medium Soft Station -3 -2 -1,0 +1,+2 Position Posterior Mid Anterior Fetus A Heart Rate Baseline: 120 Monitor Accelerations: Absent Monitor Decelerations: Late (x2) and Variable (x1) Variability: Moderate (6-25 BPM) Categories: Category II Assessment Note: While being admitted the heartrate dropped to 90s then was difficult to trace. The sono was used to visualize cardiac activity and a very slow heartbeat was noted. Detailed HEENT Exam Head: Present normocephalic and atraumatic Detailed Abdominal Exam Comments: gravid, nontender Detailed Neurological Exam Neurological: Present alert, oriented X3 and CN II-XII intact Risk Assessment Risk for Shoulder Dystocia Historical/Initial OB: NEGATIVE FOR: Pelvic Abnormality, Pre- BMI>30, Previous Shoulder Dystocia or Previous Macrosomia Risk for Pre-Eclampsia Yes, if one or more: NEGATIVE FOR: Hx Pre-E/Gest HTN, Chronic HTN, Multiple Gestation, Pre-gestational DM, Renal Disease, Systemic Lupus or APA Syndrome Yes, if 2 or more: POSITIVE FOR: Age>= 35 yrs and Previous IUGR; NEGATIVE FOR: Nulliparity, >10yr btwn pregnancies, BMI>30, ethinicty or Mother/Sister w/ Pre-E Risk for Post- Hemorrhage Initial: NEGATIVE FOR: Multiple Gestation, Previous PPH, Known Clotting Deficiency, Grand Multiparity or Anticoagulation Risks Reviewed Risks Reviewed Upon Admission: Yes
[2022-06-02 01:09] LABS: Source Nasal/Nares
--- NOTE | 2022-06-02 01:10 | ANES.PREOP_ITS ---
General Info Date of Service Date Performed: 06/02/22 Height: 5 ft 2 in Weight: 48.5 kg Body Mass Index (BMI): 19.5 Surgical Procedure: Operation Date: 06/02/22 01:30 Proposed Procedure Side Surgeon p Section Melody Miranda MD Meds Allergies and Home Medications Allergies Allergy/AdvReac Type Severity Reaction Status Date / Time latex AdvReac Intermediate Hives Verified 05/05/22 12:17 Pertussis Vaccines AdvReac Intermediate Skin Rash Verified 05/05/22 12:17 Home Medication Medication Instructions Recorded acetaminophen 500 mg tablet 1,000 mg PO TID #180 tabs 08/25/16 (Acetaminophen Extra Strength) fluoxetine 40 mg capsule 40 mg PO DAILY #90 tab-caps 10/15/17 clonidine HCl 0.1 mg tablet 0.1 mg PO HS PRN 10/18/21 trazodone 50 mg tablet 50 mg PO HS 10/18/21 docusate sodium 100 mg capsule 100 mg PO BID #60 caps 10/30/21 (Colace) buprenorphine HCl 8 mg sublingual 8 mg sublingual DAILY 11/14/21 tablet aspirin 81 mg capsule 81 mg PO DAILY #90 caps 11/21/21 omeprazole 40 mg capsule,delayed 40 mg PO DAILY #90 caps 12/19/21 release ondansetron 4 mg disintegrating 4 mg PO BID #30 tabs 03/07/22 tablet Current Visit Medications: Current Medications Generic Name Dose Route Start Last Admin Trade Name Freq PRN Reason Stop Dose Admin Citric Acid/Sodium Citrate 30 ml 06/02/22 01:00 Sodium Citrate 30 Ml Cup PO PREOP JANETTE Sodium Chloride 500 mls @ 0 mls/hr 06/02/22 01:00 Saline 500ml Bag IV PRN PRN As Directed Ringer's Solution 1,000 mls @ 200 mls/hr 06/02/22 01:00 IV INFUSION JANETTE Azithromycin 500 mg/ Sodium 250 mls @ 250 mls/hr 06/02/22 01:00 Chloride IVPB PREOP JANETTE Cefazolin Sodium/Dextrose 2 gm in 50 mls @ 100 mls/hr 06/02/22 01:00 Ancef Duplex IVPB PREOP JANETTE IV Miscellaneous Supplies 1 each 06/02/22 01:00 Iv Access IV DIRECTED JANETTE Sodium Chloride 0 ml 06/02/22 01:00 Normal Saline Flush 10 Ml Syr IVP PRN PRN PFSH Active Problems Active Problems: Problem Status Onset Code Pre-procedure lab exam Z01.812 Marijuana smoker F12.90 Dysuria during O26.899, R30.0 Multigravida of advanced maternal age in first trimester O09.521 Other specified counseling Z71.89 Stress F43.9 Unspecified problems related to employment Z56.9 Housing or economic circumstances Z59.9 Hepatitis C virus infection without hepatic coma B19.20 Z34.90 Missed menses N92.6 Opioid dependence on agonist therapy F11.20 Opioid use disorder F11.99 Tobacco use disorder F17.200 Hepatitis C antibody test positive 04/10/15 R76.8 Gastroesophageal reflux disease K21.9 Counseling for control, oral contraceptives 09/09/16 Z30.09 Anxiety and depression F41.9, F32.9 Medical History Medical History (Updated 05/30/22 @ 11:10 by Constance Waldrop DO) Hepatitis C antibody test positive History of abnormal cervical Pap smear History of alcoholism History of marijuana use Opioid abuse enrolled in Subutex program during . 6mg/day. Sciatica (03/20/09) Tobacco use Surgical History Surgical History section 2006 failure to dilate Tobacco Smoking/Tobacco Use Status: Current every day Substance Use Substance use: Current Sobriety Prental History History 6 Para 2 Hx # Term Pregnancies 2 Multiple births 0 Hx # Pregnancies 0 Ectopic pregnancies 0 AB induced 1 Hx Number of Living Children 2 AB spontaneous 2 Past Pregnancies Del. Date GA/Weeks # Preg Succ Route Wgt Sex Labor Lgth Anesth esia Location [facility] 11/07/06 40 No Yes 2409.709 g Male [place] e[place] 10/03/15 39 No Yes 3061.748 g Male [place] [facility], Dr Zavala Delivery Date: 11/07/06 Last Updated by: Jessica Petty CNM PROM and IOLAvery Nowak for FTP Delivery Date: 10/03/15 Last Updated by: Jessica Petty CNM [place] Hep C viral load, Vital Signs and Lab Results Vital Signs Most Recent Vital Signs in EMR: Most Recent Vital Signs Pulse BP Pulse Ox 39 L 131/60 99 06/02/22 00:50 06/02/22 00:50 06/02/22 00:41 Lab Results 06/02/22 Unknown Blood Type / Crossmatch: No Data to Display Complete Blood Count: White Blood Count 14.01 10^3/uL (4.4-10.8) H 06/02/22 01:15 Red Blood Count 4.77 10^6/uL (3.93-5.22) 06/02/22 01:15 Hemoglobin 14.3 g/dL (11.2-15.7) 06/02/22 01:15 Hematocrit 42.5 % (36.0-46.0) 06/02/22 01:15 Platelet Count 206 10^3/uL (130-400) 06/02/22 01:15 Complete Metabolic Panel: No Data to Display Liver Function Panel: No Data to Display Coagulation Panel: No Data to Display Cardiac Panel: No Data to Display Arterial Blood Gas: No Data to Display Venous Blood Gas: No Data to Display Pancreas Panel: No Data to Display Thyroid Panel: No Data to Display Infectious Disease: Coronavirus (COVID-19)(PCR) Negative (Negative) 06/02/22 00:20 Coronavirus 2019 Source Nasal/Nares 06/02/22 00:20 Blood Cultures: No Data to Display Toxicology Panel: Urine Amphetamines Screen Negative (Negative) 05/15/22 11:15 Urine Benzodiazepines Screen Negative (Negative) 05/15/22 11:1 5 Urine Barbiturates Screen Negative (Negative) 05/15/22 11:15 Urine Cocaine Screen Negative (Negative) 05/15/22 11:15 Urine Methadone Screen Negative (Negative) 05/15/22 11:15 Urine Opiates Screen Negative (Negative) 05/15/22 11:15 Ur Tricyclic Antidepressants Screen Negative (Negative) 11:15 Ur Tetrahydrocannabinol (THC) Scrn Positive (Negative) A 05/15 11:15 Panel: No Data to Display Anesthesia Assessment and Plan Anesthesia History Personal History: Other Family History: Other Exercise Tolerance Exercise Tolerance: Other Cardiac & Pulmonary Exam Cardiac Exam: Other Pulmonary Exam: Other Implantable Cardiac Device Does patient have a Pacemaker or an ICD?: No Airway Exam Known Difficult Airway: No Mallampati Class: Unable to Assess Mouth Opening: Unable to Assess Thyromental Distance: Less than 3 cm Neck Range of Motion: Full ROM Neck Circumference: Normal Teeth Condition: Unable to Assess ASA Classification ASA Score: ASA 3 Emergency Case?: Yes NPO Status NPO Status: Full Stomach Status Status: Confirmed Anesthesia Plan Resuscitation Status: Full Code Anesthesia Technique: General Anesthesia Airway Planned: Endotracheal Tube Monitors Used: Standard Monitors
[2022-06-02 01:22] LABS: HCT 42.5 % (36.0-46.0); HGB 14.3 g/dL (11.2-15.7); MCHC 33.6 % (32.0-36.0); MCV 89 fL (80-95); MPV 11.9 fL (8.0-11.0); Platelet Count 206 10^3/uL (130-400); RBC 4.77 10^6/uL (3.93-5.22); RDW 12.1 % (11.7-14.6); RDW-SD 39.4 fL; WBC 14.01 10^3/uL (4.4-10.8)
[2022-06-02] MEDS: Lactated Ringers 1,000 ML 200 ML IV ×2 (01:30→04:00)
[2022-06-02] MEDS: ceFAZolin 2 GM/50 ML BAG IVPB ×2 (01:32→03:24)
[2022-06-02 01:40] LABS: COVID-19 PCR Negative (Negative)
[2022-06-02] MEDS: AZITHROMYCIN 500 MG in Normal Saline 250 ML 250 MG IVPB (01:41)
[2022-06-02] MEDS: Tranexamic Acid 1,000 MG/10 ML VIAL 1000 MG ×2 (02:00→02:35)
[2022-06-02] MEDS: Cellulose,Oxidized 4X8 1 PACKET MC (03:05)
--- NOTE | 2022-06-02 03:33 | NUR.NOTE ---
Nursing Note: Pt arrived on floor at 0005 after arrival to ER via ambulance. No information known until pt arrived in ER. This RN greeted pt in ER with baby warmer and precip pack ready but determined quickly that pt was stable enough to come to floor. Pt questioned on way to floor and while placed on EFM. Pt reported tre all day.Membranes intact. Subuxone usage and marijuana usage daily. Pt stated, 3rd when asked about number baby and reported having 2 previous c-sections..Pt moving around a lot difficult to keep EFM in place. THis RN instructed to call MD after vag exam. ANEUDY performed. 0030 MD called and given brief report and on her way in. See FHR assessment on worklist.
--- NOTE | 2022-06-02 03:45 | NUR.NOTE ---
Nursing Note: C/S was already scheduled for Thursday and team called in at time of MD update (0030). 0110, Emergency C/S called due to distress after MD having unable to find FHR with bedside ultrasound. 0113, Pt to OR with RN Race Engine Builder, Farhana and this RN.
--- NOTE | 2022-06-02 04:00 | PLAC_PTH ---
PATIENT: Radha Murdock LOC: OBS U#:[id number] AGE/SX: 41/F ROOM: OBS.306 RE06/02/[address]: Melody Miranda MD : 1980 BED: A DIS: 06/05/2022 SPEC #: [id number] RECD: 06/02/22 12:46 STATUS: TONI REQ #: [id number] EDMAR: 06/02/22 04:[address]: Melody Miranda DEPT: Surgical Specimen RECD BY: Yajaira Le Tissues: 1 - PLACENTA (3RD TRIMESTER) Procedures: GROSS AND MICRO LEVEL 5 Comments: [id number]
[2022-06-02 04:12] LABS: BE -5 mmol/L (-2-3); HCO3 24 mmol/L (22-26); pO2 369 mmHg (80-105); sO2 > 99 % (95-98)
--- NOTE | 2022-06-02 04:15 | DI.RAD_ITS ---
Exam(s) XR ABDOMEN FLAT PLATE EXAM: XR ABDOMEN FLAT PLATE CLINICAL HISTORY: emergency OR case. TECHNIQUE: 2D digital imaging was performed. COMPARISON: No exams were available for comparison FINDINGS: 3 views Bowel gas pattern is nonspecific the supine position. Stone catheter noted in the bladder. Right of center at L4-5 level there is a radiopaque density which is probably artifact. Does not hav e surgical marker material. May represent a mass. IMPRESSION: As above. Recommend follow-up CT scan. DATA REPOSITORY: RADIATION DOSE DELIVERED:
--- NOTE | 2022-06-02 04:44 | ROE_ITS ---
Date of service: 06/02/22 Time of Service: 04:46 Operative Note Operative Note DATE OF PROCEDURE: 06/02/22 PRE-OP DIAGNOSIS: Cat 2 FHT Left retroperitoneal hematoma PROCEDURE: RLTCS SURGEON: Melody Miranda ASSISTING SURGEON: Constance Waldrop PHARMACY INFORMATICS MANAGER: Margarita Collins PHARMACY INFORMATICS MANAGER: Kylie De Refer to Anesthesia Record ESTIMATED BLOOD LOSS: 1,500 COMPLICATIONS: Other (Left retroperitoneal hematoma) Patient was transported to: ICU Patient's condition: stable Indications: Prior CS x2, labor, bradycardia Findings: Normal appearing uterine, ovaries, tubes and placenta. Male 9/9 apgards, 6lb 1oz. Pelvic hematoma in the left broad ligament and pelvic side wall. Procedure Description: After informed consent was signed the patient was taken to the operating room. She was given general anesthesia due to bradycardia. SCDs were placed on her legs and a riojas catheter was introduced into her bladder. She underwent abdominal prep and was draped in the dorsal supine position with a leftward tilt. A time out was performed. A skin incision was made with the scalpel and carried down to the underlying layer of fascia with blunt dissection. The fascia was incised on either side of the midline and the fascial incision extended laterally with a combination of sharp and blunt dissection. The rectus muscles were in the midline and the peritoneum was entered bluntly. The peritoneal incision was extended laterally with blunt dissection. The bladder blade was inserted. A transverse incision was made in the lower uterine segment with the scalpel. The incision was extended superiorly and inferiorly with blunt pressure. The infants head delivered with fundal pressure followed by the shoulders and the rest of the body. The baby was vigorous at delivery. The cord was milked toward the baby and after 1min it was clamped x2 and cut. The baby was handed to the automotive alignment specialist. Cord gasses and cord blood was collected. The placenta delivered with fundal massage and gentle cord traction and appeared to be intact. The uterus was exteriorized and cleared of clots and debris. There was significnat bleeding from the left uterine artery. This was ligated with 0- vicryl suture and appeared hemoastatic. The uterine incision was closed with 0- vicryl in a running locked fashion with a second layer of suture imbricating the first. Good hemostasis was noted. The uterus was placed back into the abdominal cavity. Clots were cleared from the peritoneal cavity with lap sponges. The incision was inspected once again and good hemostasis was noted. The fascial closure was started and then more blood was noted coming from the peritoneal cavity. On further inspection of the pelvis a left broad ligament and pelvic side wall hematoma was noted. At this point the pt also became ta chycardic and hypotensive. Bleeding was noted from the left edge of the uterine incision and further sutures were placed to ligate the uterine artery. No active bleeding was seen elsewhere in the pelvis and the hematoma was not visibly expanding. However, the patient's status remained guarded. Next the pelvic hematoma was opened through the anterior broad ligament next to the bladder. Some clots were emptied. No significant bleeding was noted but there was general oozing. The area was packed with a sponge. The patient's condidtion stabilized. Dr. Waldrop and Dr. De arrived to assist. There was another area of the hematoma posterior to the infundibulopelvic ligament that was a little bit oozy. Both areas were covered with surgicel temporarily, then floseal. Cystoscopy was then performed to confirm ureteral patency. Methylene blue was given prior and bilateral jets were visible. Attention was then turned back to the abdomen. There was minimal oozing from the hematoma site but no significant bleeding. The patient had remained in stable condition so the decision was made to proceed with abdominal closure. The uterus remained firm throughout the procedure. There was good hemostasis of the rectus muscles. The fascia was closed with 0-vicryl in a running unlocked fashion. The subcuticular layer was irrigated. The skin was closed with 4-0 monocryl in a running subcuticular fashion. The incision was cleaned. Mastisol and steristrips were placed. A dressing was placed. The fundus was palpated to be firm. An x-ray confirmed the absence of instruments or laps in the abdomen. The patient was moved to the stretcher and taken to the ICU in stable condition. During the procedure she was given: -2U PRB -2FFP -2 Cryo -TXA x2 -Kefzol x2 doses -Azithromycin x1
--- NOTE | 2022-06-02 04:59 | DI.VRAD_ITS ---
PROCEDURE INFORMATION: Exam: XR Chest Exam date and time: 06/02/2022 4:11 AM Age: 41 years old Clinical indication: Other vascular access device placement or adjustment; Other: R ij placement; Patient HX: Right ij placement; Additional info: Emergency TECHNIQUE: Imaging protocol: Radiologic exam of the chest. Views: 1 view. COMPARISON: CR CHEST 2 VIEWS PA,LAT 04/14/2017 8:57 AM FINDINGS: Tubes, catheters and devices: Small bore right internal jugular central venous line with tip overlying superior cavoatrial junction. Tip of ET tube overlies trachea, approximately 5 cm above marlene. Lungs: Hyperinflation. No consolidation. Pleural spaces: Unremarkable. No pleural effusion. No pneumothorax. Heart/Mediastinum: Unremarkable. No cardiomegaly. Bones/joints: Unremarkable. IMPRESSION: 1. ET tube appears in satisfactory position. 2. No acute findings. Dictated and Authenticated by: Mata Keen MD. Ordering:NAMRATA Morel MD
--- NOTE | 2022-06-02 05:00 | DI.VRAD_ITS ---
Addendum created by Mata Keen DO on 06/02/2022 5:23:06 AM EDT: THIS REPORT CONTAINS FINDINGS THAT MAY BE CRITICAL TO PATIENT CARE. The findings were verbally communicated via telephone conference with Dr. Miranda 06/02/2022 5:21 AM EDT. The findings were acknowledged and understood. Initial report created on 06/02/2022 5:00:42 AM EDT: PROCEDURE INFORMATION: Exam: XR Abdomen Exam date and time: 06/02/2022 4:06 AM Age: 41 years old Clinical indication: Study performed for possible retained surgical item in a patient currently under anesthesia. Surgical item - unknown. Screening exam; Post surgical status; ; Additional info: Emergency TECHNIQUE: Imaging protocol: Radiologic exam of the abdomen. Views: Frontal supine view of the abdomen. 1 View. COMPARISON: US ABDOMEN ULTRASOUND (P) 04/14/2017 4:58 PM FINDINGS: Gastrointestinal tract: Normal. No bowel dilation. Bones/joints: Unremarkable. Soft tissues: No radiopacity identified consistent with retained surgical material. IMPRESSION: No acute findings. Dictated and Authenticated by: Mata Keen MD. Ordering:PILY Oliver MD
[2022-06-02 05:06] LABS: pCO2 63 mmHg (35-45); pH 7.18 (7.35-7.45)
--- NOTE | 2022-06-02 05:28 | NUR.NOTE ---
Nursing Note: This RN went to ICU to perform First post op OB check in ICU and show IGNACIO Yuen how to do fundal checks, meaning of abnormal vs normal findings plus vaginal bleeding checks.Fundus found to be firm at Umbilicus and no vaginal bleeding. Pt appeared agitated but not oriented.
--- NOTE | 2022-06-02 06:10 | W.ANESVAS ---
Central Venous Line Placement Date Performed: 06/02/22 Procedure Time: 04:05 Procedure Location: Operating Room Requesting Provider: Melody Miranda Standard Monitors Applied: ECG, Blood Pressure, SpO2, ETCO2 and See EMR for corresponding vital signs Pt. Position: Supine Trendelenburg Timeout Performed: No Sedation Given (Indicate Dose Given): No Sedation given Patient Mental Status: Performed under general anesthesia Sterility: Hand Hygiene, Surgical Cap, Surgical Mask, Sterile Gloves, Sterile Drape/Sheet, Sterile Gown, Chlorhexidine and Emergency Procedure Laterality: Right Insertion Site: Internal Jugular (IJ) Central Line Type: Triple Lumen Catheter Insertion Procedure: Vessel accessed with catheter over needle, catheter advanced, Dermatotomy (skin tammie) made with scalpel, Introducer/Catheter placed without resistance, Guidewire removed and Claves placed, blood withdrawn, ports flushed and clamped Dressing: Sorbaview Dressing Placed, BioPatch and Sutured in Place Catheter Depth at Skin (cm): 15 Placement Confirmation: Confirmation X-Ray Ordered Ultrasound: Sterile probe cover and gel used Ultrasound Image Saved?: Yes Number of Attempts (See previous attempts in note section): 2 Procedure Tolerated: No Complications and Patient tolerated well Procedure Outcome: Successful Procedure Comment: Technically challenging, even in t-salcedo, R IJ is easily obliterated with even slightest US probe pressure. Line placed and ports with venous blood return. Line not used at this point due to adequate resuscitation up until this point. Performed By: Adriel Elizondo
[2022-06-02 06:15] LABS: HGB 9.9 g/dL (11.2-15.7)
[2022-06-02] MEDS: Lactated Ringers 1,000 ML 120 ML IV ×4 (06:40→20:35)
[2022-06-02] MEDS: HYDROmorphone 2 MG/ML SYR IVP (06:43)
[2022-06-02] MEDS: Normal Saline Flush 10 ML SYR IVP ×4 (06:45→20:38)
--- NOTE | 2022-06-02 06:46 | NUR.NOTE ---
Pt arrived to the ICU from the OR after having a . Pt arrived to the ICU with a right IJ, 18G in the left AC, 16 Spanish Stone draining blue urine. Belonging lovelace, pt has a neck less in a specimen cup that is by the sink on the counter. When pt arrived, pt was drowsy, coming out of sedation. Pt also had a very low temperature (34.6), decision was made to use the bearhugger until patient was able to keep temperature to a normal level. Pt was getting agitated, pulling at Stone catheter and IJ. Decision was made to put the pt in restraints for patient safety. Initial ICU arrival assessment was done to the best of my ability. Pt was still coming out of sedation, some questions were not answered. Pt currently has LR going at 120 mls/hr and has oxytocin at 95 mls/hr. Dr. Waldrop came down to visit with patient and told nurse to hold morning PO meds and focus on pain management. Will continue to monitor. -Estela Harris RN Nursing Note:
[2022-06-02] MEDS: Oxytocin/Normal Saline 30 UNIT/500 ML BAG 95 UNITS IV (07:13)
[2022-06-02 07:14] LABS: ALT 13 U/L (14-59); AST 22 U/L (15-37); Alkaline Phosphatase 137 U/L (46-116); Anion Gap 11.2 mmol/L (3-11); BUN 11 mg/dL (7-18); Bilirubin, Total 0.8 mg/dL (0.2-1.0); CO2 24.8 mmol/L (21.0-32.0); CREATININE 0.8 mg/dL (0.55-1.02); Calcium 7.2 mg/dL (8.5-10.1); Chloride 108 mmol/L (98-107); Estimated GFR 96.06 (mL/min/1.73m2); Glucose 201 mg/dL (74-106); Potassium 4.2 mmol/L (3.5-5.1); Sodium 144 mmol/L (136-145); Total Protein 4.4 g/dL (6.4-8.2)
--- NOTE | 2022-06-02 07:19 | W.PM.OBPNV1 ---
Date of service: 06/02/22 Time of Service: 07:19 Assessment and Plan Assessment and plan (1) Status post repeat low transverse section: Status: Acute Assessment and plan: Patient presented to the center early this morning in active labor. Dr. Miranda was there to evaluate the patient. She was noted to be 3 cm and tre regularly. There was noted to be bradycardia with heart tones in the 30s. She was taken emergently for section. She delivered a viable male weighing 6 pounds 1 ounce with Apgars of 9 and 9. Patient herself became hemodynamically and stable in the OR and there was noted to be a left sided retroperitoneal hematoma. I was called to assist in the case at that time. She had received 2 units of packed red blood cells, 2 units of fresh frozen plasma, 2 units of cryoprecipitate. General surgeon was also called for the possibility of further assistance. On exploration, there was noted to be a relatively large left sided retroperitoneal and bladder hematoma. This responded well to pressure and remained nonexpansile. She had an intraoperative cystoscopy to evaluate ureteric patency due to proximity to the left ureter. Ureters were functioning appropriately. She was taken from the OR to the ICU for careful monitoring. (2) Retroperitoneal hematoma: Status: Acute Assessment and plan: Left-sided retroperitoneal hematoma with extension in the broad ligament and bladder on the left side. Intraoperatively appears stable. We will continue to monitor with serial monitoring of her hemoglobin, vital signs, and urine output. May warrant more transfusion based on hemodynamic stability. Maternal- medicine at [facility] had been notified in the chance that there may be need for transfer to a tertiary care center for interventional radiology. (3) Acute blood loss anemia: Status: Acute Assessment and plan: Currently hemodynamically stable with a hemoglobin of 9.9 down from 14. H&H pending at 9 AM. (4) Hepatitis C antibody test positive: Status: Chronic (5) Opioid dependence on agonist therapy: Status: Chronic Assessment and plan: Had been on Suboxone. Currently holding her replacement medications in light of need for better pain control at this point. (6) Anxiety and depression: Status: Chronic Subjective Subjective Interval history: Patient seen and examined this morning. Delivery and surgical findings reviewed with the patient. She is sleepy but arousable. She states that she has a severe amount of pain typically in her abdomen. We discussed the emergent nature of her section, her left pelvic sidewall hematoma, her need for transfusion intraoperative, and the potential for further transfusions in the postoperative period. We are awaiting a repeat CBC at 9:00. Patient may benefit from frequent 3 units of packed red blood cells. If continued blood loss, would consider transfer to tertiary care center. been in touch with maternal- medicine at [facility] who would accept her care if there was a necessity for interventional radiology. Exam Physical Exam Vital signs: Temp Pulse Resp BP Pulse Ox 94.8 F L 45 L 26 H 119/75 99 06/02/22 05:47 06/02/22 06:01 06/02/22 05:50 06/02/22 06:01 06/02/22 06:10 Vital Signs Reviewed: Yes Notable Details: Stable blood pressure. No longer tachycardic. We will monitor vital signs Constitutional Comments: Patient is pale but not diaphoretic. She is sleepy but arousable and reports moderate to severe pain. She will receive IV Dilaudid for pain control. HEENT Exam HEENT Exam: Normal Neck Exam Neck Exam: Normal (Right IJ catheter) Respiratory Exam Respiratory Exam: Abnormal (Tachycardic) Abdominal Exam Comments: Abdomen is soft Fundal Exam Fundus: Firm Comment: At the umbilicus. Results Hemoglobin/Hematocrit: Hgb 9.9 g/dL (11.2-15.7) L D 06/02/22 05:30 Hct 29.0 % (36.0-46.0) L 06/02/22 05:30 Abnormal Lab Findings: Abnormal Labs 06/02/22 06/02/22 06/02/22 01:15 01:15 04:03 WBC 14.01 H Hgb Hct MPV 11.9 H ABG pH 7.18 L* ABG pCO2 63 H* ABG pO2 369 H ABG O2 Saturation > 99 H ABG Base Excess -5 L Chloride Anion Gap Glucose Calcium ALT Alkaline Phosphatase Total Protein Albumin Crossmatch See Detail 06/02/22 06/02/22 05:30 05:30 WBC Hgb 9.9 L D Hct 29.0 L MPV ABG pH ABG pCO2 ABG pO2 ABG O2 Saturation ABG Base Excess Chloride 108 H Anion Gap 11.2 H Glucose 201 H Calcium 7.2 L ALT 13 L Alkaline Phosphatase 137 H Total Protein 4.4 L Albumin 2.0 L Crossmatch
[2022-06-02 08:32] LABS: Prothrombin Time 9.8 sec (9.3-11.0)
[2022-06-02] MEDS: HYDROmorphone 2 MG/ML SYR IV ×5 (09:03→20:36)
--- NOTE | 2022-06-02 09:21 | PDOC.CMIN ---
- If Service Date Differs Date of service: 06/02/22 Time of Service: 09:21 Care Management Initial Assess REASON FOR HOSPITALIZATION:: section, Retroperitoneal hematoma. PAST MEDICAL HISTORY/PAST SURGICAL HISTORY:: All Active Problems (Updated 06/02/22 @ 04:35 by Melody Miranda MD). Uterine contractions (Acute). Anxiety and depression (Chronic). Pt reports she has also been diagnosed with borderline personality d/o. Fluoxetine, clonidine. Gastroesophageal reflux disease (Chronic). Hepatitis C antibody test positive (Chronic 04/10/15). Undetected RNA level 04/2016, 03/2017. Tobacco use disorder (Chronic). Opioid dependence on agonist therapy (Chronic). Subutex 6 mg PO daily. (Acute). Housing or economic circumstances (Acute). Stress (Acute). Other specified counseling (Acute). Legal Concerns related to past DCF involvement with their son, Norman 10/03/15 who has lived with [facility] since . Multigravida of advanced maternal age in first trimester (Acute). Marijuana smoker (Acute). Medical History (Updated 06/02/22 @ 04:35 by Melody Miranda MD). History of abnormal cervical Pap smear. History of alcoholism. History of marijuana use. Sciatica (03/20/09). Surgical History . section. 2006 failure to dilate PREVIOUS FUNCTIONAL STATUS/SOCIAL/FAMILY SUPPORTS:: Radha resides in [place] with her partner Vinay. She delivered a baby via section this morning. Radha has 2 other children whom she does not have custody of and do not live with her. Radha transports via [facility]. Per pt, she has a lot of community support and denies any social or community needs at this time. CM will continue to follow. CURRENT FUNCTIONAL STATUS:: Radha shares that she's had a very long morning. She is sleepy and lying in bed when CM met with her. Her partner Vinay is sitting next to her, rocking their crying . Radha shares that she is well connected to community support services, and has no immediate needs at this time. ADVANCE DIRECTIVES:: None Has patient been provided with info about the portal/API?: Yes Did the patient sign up for the portal?: No CODE STATUS:: Full Code INSURANCE COVERAGE / FINANCIAL ISSUES:: Medicaid CURRENT HOME/COMMUNITY SERVICES/EQUIPMENT:: [facility]. [facility]. [facility] PRIMARY CARE PHYSICIAN:: None. (T doc is Dr. Telles) POTENTIAL DISCHARGE NEEDS:: Follow up with T-doc(Dr. Telles). Follow up with [facility]. [facility] PATIENT/FAMILY EDUCATION NEEDS:: Review discharge instructions, limitations and plan to follow up with community providers. Discuss ask me three. TRANSPORTATION:: Via [facility] PLAN:: Anticipate, Radha will discharge home via [facility] when medically ready per provider. She will follow up with community providers and her discharge plan of care as prescribed. Last dose letter for BAART will be provided to pt prior to discharge. CM will continue to follow.
[2022-06-02 09:47] LABS: Abs Immature Grans 0.11 10^3/uL (0.0-0.06); Absolute Basophil Count 0.05 10^3/uL (0.0-0.2); Absolute Lymphocyte Count 0.64 10^3/uL (1.2-3.4); Absolute Monocyte Count 1.31 10^3/uL (0.1-0.8); Absolute Neutrophil Count 14.66 10^3/uL (1.2-6.7); Basophils % 0.3; HCT 23.9 % (36.0-46.0); HGB 8.5 g/dL (11.2-15.7); Immature Grans % 0.7; Lymphocytes % 3.8; MCHC 35.6 % (32.0-36.0); MPV 10.5 fL (8.0-11.0); Monocytes % 7.8; Neutrophils % 87.4; Platelet Count 84 10^3/uL (130-400); RBC 2.83 10^6/uL (3.93-5.22); RDW 13.6 % (11.7-14.6); RDW-SD 41.7 fL; WBC 16.77 10^3/uL (4.4-10.8)
[2022-06-02 10:09] LABS: Diff Comment Diff Reviewed; MCV 85 fL (80-95)
--- NOTE | 2022-06-02 10:09 | W.ANESPOSTOP ---
Postoperative Evaluation Date, Time and Location Date Performed: 06/02/22 Time Performed: 10:09 Patient Location: Day Surgery Unit Vital Signs Most Recent Imported Vital Signs: Most Recent Vital Signs Temp Pulse Resp BP Pulse Ox 34.9 C L 73 17 128/78 91 L 06/02/22 05:47 06/02/22 09:00 06/02/22 09:40 06/02/22 09:00 06/02/22 09:40 Pain Score Most Recent Pain Score: Most Recent Pain Score Pain Level 8 06/02/22 09:03 Assessment Mental Status: Awake (Alert & Oriented to Patient Baseline) Airway and Respiratory Function: Patent airway with normal (patient baseline) respiratory exam Cardiovascular Function: Hemodynamically Stable Hydration Status: Adequately Hydrated Nausea & Vomiting: No Nausea or Vomiting Pain: Pain is tolerable per patient (Currently reporting 6/10, 7/10 with movement ) Peripheral Nerve Block: Patient did not receive a nerve block Postoperative Comments:: Discussed course of care with patient and significant other at bedside, denied questions. Educated for how to contact anesthesia if necessary.
[2022-06-02 10:10] LABS: Basophilic Stippling Present; Hypochromasia 2+
--- NOTE | 2022-06-02 11:55 | W.PM.OBPNV1 ---
Date of service: 06/02/22 Time of Service: 11:55 Assessment and Plan Assessment and plan (1) Status post repeat low transverse section: Status: Acute Assessment and plan: Postoperative day #0. Patient seen and examined. Hemoglobin at 8.5. Will transfuse her third unit of packed red blood cells. Pain control. Up in the chair today. Continue accurate I's and O's. Incentive spirometry. Preoperative, intraoperative, and postoperative findings all discussed with the patient at length today. (2) Retroperitoneal hematoma: Status: Acute Exam Physical Exam Vital signs: Temp Pulse Resp BP Pulse Ox 97.5 F L 105 H 22 99/63 L 92 06/02/22 11:45 06/02/22 11:45 06/02/22 11:45 06/02/22 11:45 06/02/22 11:45 Vital Signs Reviewed: Yes Narrative: Vital signs reviewed and stable. Urine output is improving Constitutional Comments: Patient doing well, alert, oriented. Some abdominal discomfort from her surgery HEENT Exam HEENT Exam: Normal Neck Exam Neck Exam: Normal (Right IJ catheter functioning without difficulty) Respiratory Exam Respiratory Exam: Abnormal (Coarse breath sounds bilaterally. Productive cough) Cardiovascular Exam Cardiovascular Exam: Normal Abdominal Exam Abdomen: Tender Comments: Soft Fundal Exam Fundus: Below Umbilicus and Firm Extremities Exam Extremity Exam: Normal and Edema (2+ bilateral lower extremity); negative Calf Tenderness Neurological Exam Neurological Exam: Normal Psychiatric Exam Psychiatric Exam: Normal Results Hemoglobin/Hematocrit: Hgb 8.5 g/dL (11.2-15.7) L 06/02/22 09:35 Hct 23.9 % (36.0-46.0) L 06/02/22 09:35 Abnormal Lab Findings: Abnormal Labs 06/02/22 06/02/22 06/02/22 01:15 01:15 04:03 WBC 14.01 H RBC Hgb Hct Plt Count MPV 11.9 H Absolute Neutrophils Absolute Lymphocytes Absolute Monocytes ABG pH 7.18 L* ABG pCO2 63 H* ABG pO2 369 H ABG O2 Saturation > 99 H ABG Base Excess -5 L Chloride Anion Gap Glucose Calcium ALT Alkaline Phosphatase Total Protein Albumin Crossmatch See Detail 06/02/22 06/02/22 06/02/22 05:30 05:30 09:35 WBC 16.77 H RBC 2.83 L Hgb 9.9 L D 8.5 L Hct 29.0 L 23.9 L Plt Count 84 L D MPV Absolute Neutrophils 14.66 H Absolute Lymphocytes 0.64 L Absolute Monocytes 1.31 H ABG pH ABG pCO2 ABG pO2 ABG O2 Saturation ABG Base Excess Chloride 108 H Anion Gap 11.2 H Glucose 201 H Calcium 7.2 L ALT 13 L Alkaline Phosphatase 137 H Total Protein 4.4 L Albumin 2.0 L Crossmatch
--- NOTE | 2022-06-02 15:58 | W.PM.OBPNV1 ---
Date of service: 06/02/22 Time of Service: 15:58 Assessment and Plan Assessment and plan (1) Retroperitoneal hematoma: Status: Acute Assessment and plan: Patient has remained stable throughout the day today. We will carefully assess vital signs and urine output. Await hemoglobin after her third unit of packed red blood cells. Slowly advance diet. Patient currently up in a chair. Consider transfer to the center tomorrow if patient remains stable. (2) Status post repeat low transverse section: Status: Acute (3) Acute blood loss anemia: Status: Acute Subjective Subjective Interval history: Patient seen and examined this afternoon after her third unit of packed red blood cells. Overall she is doing well. Vitals remained relatively stable though pulse is somewhat labile on occasion. She is using her incentive spirometer. She does have pneumatic compression stockings. Stone catheter is to gravity with low but appropriate urine output. We again discussed her surgery and findings today. We will wait her hemoglobin after her third unit of packed red blood cells. My anticipation would be that she would be able to transfer to the center tomorrow if she remains stable throughout the night. All of her questions were answered today. Exam Physical Exam Vital signs: Temp Pulse Resp BP Pulse Ox 98.1 F 61 12 131/69 96 06/02/22 14:15 06/02/22 15:49 06/02/22 15:49 06/02/22 15:49 06/02/22 15:49 Vital Signs Reviewed: Yes Constitutional Constitutional: no acute distress and cooperative HEENT Exam HEENT Exam: Normal Neck Exam Neck Exam: Normal Respiratory Exam Respiratory Exam: Normal Cardiovascular Exam Cardiovascular Exam: Normal Fundal Exam Fundus: Below Umbilicus and Firm Extremities Exam Extremity Exam: Edema (2+ bilateral); negative Calf Tenderness Results Hemoglobin/Hematocrit: Hgb 8.5 g/dL (11.2-15.7) L 06/02/22 09:35 Hct 23.9 % (36.0-46.0) L 06/02/22 09:35 Abnormal Lab Findings: Abnormal Labs 06/02/22 06/02/22 06/02/22 01:15 01:15 04:03 WBC 14.01 H RBC Hgb Hct Plt Count MPV 11.9 H Absolute Neutrophils Absolute Lymphocytes Absolute Monocytes ABG pH 7.18 L* ABG pCO2 63 H* ABG pO2 369 H ABG O2 Saturation > 99 H ABG Base Excess -5 L Chloride Anion Gap Glucose Calcium ALT Alkaline Phosphatase Total Protein Albumin Crossmatch See Detail 06/02/22 06/02/22 06/02/22 05:30 05:30 09:35 WBC 16.77 H RBC 2.83 L Hgb 9.9 L D 8.5 L Hct 29.0 L 23.9 L Plt Count 84 L D MPV Absolute Neutrophils 14.66 H Absolute Lymphocytes 0.64 L Absolute Monocytes 1.31 H ABG pH ABG pCO2 ABG pO2 ABG O2 Saturation ABG Base Excess Chloride 108 H Anion Gap 11.2 H Glucose 201 H Calcium 7.2 L ALT 13 L Alkaline Phosphatase 137 H Total Protein 4.4 L Albumin 2.0 L Crossmatch
[2022-06-02] MEDS: oxyCODONE 5 mg/Acetaminophen 325 mg TAB PO ×2 (16:24→20:37)
[2022-06-02] MEDS: Nicotine 21 MG/24 HR PATCH TD (16:24)
[2022-06-02 16:39] LABS: HGB 9.4 g/dL (11.2-15.7)
[2022-06-02] MEDS: Metoclopramide 10 MG/2 ML VIAL IVP (21:41)
[2022-06-03] VITALS (16 sets, daily range): BP systolic 108–125; BP diastolic 63–79; PULSE 73–110; RESP 11–21; TEMP 36.3–37; O2SAT 91–96
[2022-06-03] MEDS: HYDROmorphone 2 MG/ML SYR IV ×2 (00:50→05:17)
[2022-06-03] MEDS: Lactated Ringers 1,000 ML 120 ML IV (04:59)
[2022-06-03] MEDS: oxyCODONE 5 mg/Acetaminophen 325 mg TAB PO ×2 (05:16→12:40)
[2022-06-03] MEDS: Normal Saline Flush 10 ML SYR IVP (05:17)
[2022-06-03] MEDS: Omeprazole 20 MG CAPCR 40 MG PO (08:06)
[2022-06-03] MEDS: FLUoxetine 20 MG CAP 40 MG PO (08:06)
[2022-06-03 08:23] LABS: Abs Immature Grans 0.08 10^3/uL (0.0-0.06); Absolute Basophil Count 0.04 10^3/uL (0.0-0.2); Absolute Eosinophil Count 0.01 10^3/uL (0.0-0.7); Absolute Lymphocyte Count 0.85 10^3/uL (1.2-3.4); Absolute Monocyte Count 0.42 10^3/uL (0.1-0.8); Absolute Neutrophil Count 9.46 10^3/uL (1.2-6.7); Basophils % 0.4; Eosinophils % 0.1; HGB 8.5 g/dL (11.2-15.7); Immature Grans % 0.7; Lymphocytes % 7.8; MCH 29.5 pg (27.0-33.0); MCHC 35.4 % (32.0-36.0); MCV 83 fL (80-95); MPV 11.7 fL (8.0-11.0); Monocytes % 3.9; Neutrophils % 87.1; RBC 2.88 10^6/uL (3.93-5.22); RDW 13.9 % (11.7-14.6); RDW-SD 41.7 fL; WBC 10.86 10^3/uL (4.4-10.8)
[2022-06-03 08:32] LABS: Anion Gap 5.4 mmol/L (3-11); BUN 7 mg/dL (7-18); CO2 30.6 mmol/L (21.0-32.0); CREATININE 0.6 mg/dL (0.55-1.02); Calcium 7.9 mg/dL (8.5-10.1); Chloride 107 mmol/L (98-107); Estimated GFR 117.02 (mL/min/1.73m2); Glucose 80 mg/dL (74-106); Potassium 3.5 mmol/L (3.5-5.1); Sodium 143 mmol/L (136-145)
[2022-06-03 08:43] LABS: Platelet Count 86 10^3/uL (130-400)
--- NOTE | 2022-06-03 09:29 | CMPROGNOTE_ITS ---
- If Service Date Differs Date of service: 06/03/22 Time of Service: 09:29 Care Management Progress Note S/O: Radha remains in the ICU. She tried to eat some eggs for breakfast, then became nauseous. She is planning on transferring to OB this morning to be with her son Phong. Radha talked a bit about her community supports today. She and Vinay are currently working with the [employer] program through [employer]. She is also connected with [employer]. She has a carseat for Phong at home, which Vinay is planning on bringing to the hospital his next trip home. A: 41 year old female admitted to [facility] ICU on 06/02/22 s/p section, Retroperitoneal hematoma. P: Anticipate, Radha will discharge home via private vehicle with family vs. [facility] when medically ready per provider. She will follow up with community providers and her discharge plan of care as prescribed. Last dose letter for BAART will be provided to pt prior to discharge. CM will continue to follow.
--- NOTE | 2022-06-03 10:53 | W.PM.OBPNV1 ---
Date of service: 06/03/22 Time of Service: 09:00 Assessment and Plan Assessment and plan (1) Status post repeat low transverse section: Status: Acute Assessment and plan: Transferring to center. Routine post-op care (2) Retroperitoneal hematoma: Status: Acute Assessment and plan: Pt is stable. No evidence of significant ongoing bleeding. Labs stable this am. (3) Acute blood loss anemia: Status: Acute Assessment and plan: Labs stable. Will repeat tomorrow. Subjective Subjective Interval history: Pt has remained stable overnight. Her pain management is improving. She used some dilaudid early this am. She is tolerating liquids without n/v. She is diuresing well. She feels constipated. Patient's Mood: Good. Wants to be with baby Exam Physical Exam Vital signs: Temp Pulse Resp BP Pulse Ox 97.3 F L 88 14 110/64 92 06/03/22 04:30 06/03/22 05:23 06/03/22 05:23 06/03/22 05:23 06/03/22 05:23 Vital Signs Reviewed: Yes Constitutional Constitutional: no acute distress and cooperative Detailed HEENT Exam Head: Present normocephalic and atraumatic Comments: Central line in place Respiratory Exam Respiratory Exam: Normal Abdominal Exam Abdomen: Tender (mildly) Comments: Dressing still in place over incision. The blood that was noted yesterday has noted expanded. Fundal Exam Fundus: Below Umbilicus and Firm Extremities Exam Extremity Exam: Edema Detailed Neurological Exam Neurological: Present alert, oriented X3 and CN II-XII intact Results Hemoglobin/Hematocrit: Hgb 8.5 g/dL (11.2-15.7) L 06/03/22 08:10 Hct 24.0 % (36.0-46.0) L 06/03/22 08:10 Abnormal Lab Findings: Abnormal Labs 06/02/22 06/02/22 06/02/22 01:15 01:15 04:03 WBC 14.01 H RBC Hgb Hct Plt Count MPV 11.9 H Absolute Neutrophils Absolute Lymphocytes Absolute Monocytes ABG pH 7.18 L* ABG pCO2 63 H* ABG pO2 369 H ABG O2 Saturation > 99 H ABG Base Excess -5 L Chloride Anion Gap Glucose Calcium ALT Alkaline Phosphatase Total Protein Albumin Crossmatch See Detail 04/03/23 04/03/23 04/03/23 05:30 05:30 09:35 WBC 16.77 H RBC 2.83 L Hgb 9.9 L D 8.5 L Hct 29.0 L 23.9 L Plt Count 84 L D MPV Absolute Neutrophils 14.66 H Absolute Lymphocytes 0.64 L Absolute Monocytes 1.31 H ABG pH ABG pCO2 ABG pO2 ABG O2 Saturation ABG Base Excess Chloride 108 H Anion Gap 11.2 H Glucose 201 H Calcium 7.2 L ALT 13 L Alkaline Phosphatase 137 H Total Protein 4.4 L Albumin 2.0 L Crossmatch 06/02/22 06/03/22 06/03/22 16:15 08:10 08:10 WBC 10.86 H RBC 2.88 L Hgb 9.4 L 8.5 L Hct 24.0 L Plt Count 86 L MPV 11.7 H Absolute Neutrophils 9.46 H Absolute Lymphocytes 0.85 L Absolute Monocytes ABG pH ABG pCO2 ABG pO2 ABG O2 Saturation ABG Base Excess Chloride Anion Gap Glucose Calcium 7.9 L ALT Alkaline Phosphatase Total Protein Albumin Crossmatch
[2022-06-03] MEDS: Ondansetron 4 MG/2 ML VIAL IVP (12:44)
[2022-06-03] MEDS: Acetaminophen 325 MG TAB 650 MG PO ×2 (17:44→23:17)
[2022-06-03] MEDS: Ibuprofen 600 MG TAB PO (17:44)
[2022-06-04] MEDS: Acetaminophen 325 MG TAB 650 MG PO ×2 (06:13→16:43)
[2022-06-04] MEDS: Ibuprofen 600 MG TAB PO ×2 (06:14→16:44)
[2022-06-04 06:28] VITALS: BP 123/90; PULSE 78; TEMP 36.7
[2022-06-04 06:48] LABS: HCT 29.1 % (36.0-46.0); HGB 10.2 g/dL (11.2-15.7); MCH 29.9 pg (27.0-33.0); MCHC 35.1 % (32.0-36.0); MCV 85 fL (80-95); MPV 11.7 fL (8.0-11.0); Platelet Count 124 10^3/uL (130-400); RBC 3.41 10^6/uL (3.93-5.22); RDW 14.3 % (11.7-14.6); RDW-SD 44.4 fL; WBC 12.33 10^3/uL (4.4-10.8)
[2022-06-04 08:00] VITALS: BP 114/69; PULSE 56; RESP 16; TEMP 36.6
[2022-06-04] MEDS: Omeprazole 20 MG CAPCR 40 MG PO (08:45)
[2022-06-04] MEDS: FLUoxetine 20 MG CAP 40 MG PO (08:46)
[2022-06-04] MEDS: Docusate Sodium 100 MG CAP PO (08:47)
[2022-06-04] MEDS: Nicotine 21 MG/24 HR PATCH TD (08:47)
--- NOTE | 2022-06-04 09:35 | CMPROGNOTE_ITS ---
- If Service Date Differs Date of service: 06/04/22 Time of Service: 09:35 Care Management Progress Note S/O: Radha is now up on the OB floor yesterday to be with her [place] son Phong. Per Radha, she and Vinay are currently working with the [employer] program through [employer]. She is also connected with [employer]. She has a carseat for Phong at home, which Vinay is planning on bringing to the hospital his next trip home. A: 41 year old female admitted to [facility] ICU on 06/02/22 s/p section, Retroperitoneal hematoma. P: Anticipate, Radha will discharge home via private vehicle with family vs. [facility] when medically ready per provider. She will follow up with community providers and her discharge plan of care as prescribed. Last dose letter for BAART will be provided to pt prior to discharge. CM will continue to follow.
[2022-06-04] MEDS: Ondansetron O.D.T. 4 MG TABEF PO (10:57)
[2022-06-04 16:00] VITALS: BP 125/70; PULSE 74; TEMP 36.3
--- NOTE | 2022-06-04 17:07 | OBPPV_ITS ---
Date of service: 06/04/22 Time of Service: 09:30 Assessment and Plan Assessment and plan (1) Status post repeat low transverse section: Status: Acute Assessment and plan: Routine post-op care. Plan d/c for mom tomorrow but she will be staying with the baby until discharge Sat. Will plan to flower buncher or picker her suboxone tomorrow or thursday. Subjective Subjective Interval history: Pt doing very well. Up and out of bed. Using only tylenol and motrin for pain management. She is tolerating small amounts of solid food but doesn't have much of an appetite. +Flatus, neg BM. Minimal lochia. Thayer baby status: Doing well feeding status: Exclusively formula feeding Exam Physical Exam Vital signs: Temp Pulse Resp BP Pulse Ox 97.3 F L 74 16 125/70 91 L 06/04/22 16:00 06/04/22 16:00 06/04/22 08:00 06/04/22 16:00 06/03/22 16:00 Vital Signs Reviewed: Yes Constitutional Constitutional: no acute distress and cooperative Detailed HEENT Exam Head: Present normocephalic and atraumatic Respiratory Exam Respiratory Exam: Normal Abdominal Exam Abdomen: Tender (mildly) Comments: Incision clean, dry, intact Fundal Exam Fundus: Below Umbilicus and Firm Extremities Exam Extremity Exam: Edema Detailed Neurological Exam Neurological: Present alert, oriented X3 and CN II-XII intact Results Hemoglobin/Hematocrit: Hgb 10.2 g/dL (11.2-15.7) L 06/04/22 06:00 Hct 29.1 % (36.0-46.0) L 06/04/22 06:00 Abnormal Lab Findings: Abnormal Labs 06/02/22 06/02/22 06/02/22 01:15 01:15 04:03 WBC 14.01 H RBC Hgb Hct Plt Count MPV 11.9 H Absolute Neutrophils Absolute Lymphocytes Absolute Monocytes ABG pH 7.18 L* ABG pCO2 63 H* ABG pO2 369 H ABG O2 Saturation > 99 H ABG Base Excess -5 L Chloride Anion Gap Glucose Calcium ALT Alkaline Phosphatase Total Protein Albumin Crossmatch See Detail 06/02/22 06/02/22 06/02/22 05:30 05:30 09:35 WBC 16.77 H RBC 2.83 L Hgb 9.9 L D 8.5 L Hct 29.0 L 23.9 L Plt Count 84 L D MPV Absolute Neutrophils 14.66 H Absolute Lymphocytes 0.64 L Absolute Monocytes 1.31 H ABG pH ABG pCO2 ABG pO2 ABG O2 Saturation ABG Base Excess Chloride 108 H Anion Gap 11.2 H Glucose 201 H Calcium 7.2 L ALT 13 L Alkaline Phosphatase 137 H Total Protein 4.4 L Albumin 2.0 L Crossmatch 06/02/22 06/03/22 06/03/22 16:15 08:10 08:10 WBC 10.86 H RBC 2.88 L Hgb 9.4 L 8.5 L Hct 24.0 L Plt Count 86 L MPV 11.7 H Absolute Neutrophils 9.46 H Absolute Lymphocytes 0.85 L Absolute Monocytes ABG pH ABG pCO2 ABG pO2 ABG O2 Saturation ABG Base Excess Chloride Anion Gap Glucose Calcium 7.9 L ALT Alkaline Phosphatase Total Protein Albumin Crossmatch 06/04/22 06:00 WBC 12.33 H RBC 3.41 L Hgb 10.2 L Hct 29.1 L Plt Count 124 L MPV 11.7 H Absolute Neutrophils Absolute Lymphocytes Absolute Monocytes ABG pH ABG pCO2 ABG pO2 ABG O2 Saturation ABG Base Excess Chloride Anion Gap Glucose Calcium ALT Alkaline Phosphatase Total Protein Albumin Crossmatch
[2022-06-04 19:59] VITALS: BP 118/79; PULSE 76; TEMP 36.6
[2022-06-04 21:56] VITALS: BP 100/70; PULSE 70; TEMP 36.7
[2022-06-05] MEDS: Ibuprofen 600 MG TAB PO (06:10)
[2022-06-05] MEDS: Acetaminophen 325 MG TAB 650 MG PO (06:10)
[2022-06-05 06:11] VITALS: BP 125/73; PULSE 67; TEMP 36.4
[2022-06-05 07:53] VITALS: BP 122/71; PULSE 63; RESP 14; TEMP 37
[2022-06-05] MEDS: Omeprazole 20 MG CAPCR 40 MG PO (08:34)
--- NOTE | 2022-06-05 09:50 | DSE_ITS ---
Date of service: 06/05/22 Time of Service: 09:30 DS: Diagnosis Discharge Diagnosis (1) Status post repeat low transverse section: Status: Acute Asessment and Plan: Doing well post-op. Ready for D/C. +flatus but no BM yet. Minimal lochia. Nallely PO and slightly increased appetite. Discharge Plan Disposition Condition: Good Discharge Details Reason For Visit: Delivery Admit Date/Time: 06/02/22 00:36 Admit Provider: Melody Miranda Attending Provider: Melody Miranda Hospital Course Hospital Course: Pt admitted in active labor with 2 prior C sections. The OR team was alerted. She then proceeded to have a bradycardia and so underwent her C section with general anesthesia and had delivery of a vigorous male . After delivery she had bleeding from the uterine artery on the left side and developed a retroperitoneal hematoma causing hypotension and necessitating resuscitation with 2U PRBC, 2 of FFP and cryo each. She was stabilized and moved to the ICU for recovery. She received a 3rd unit of PRBCs for persistent anemia but remained stable. She was transferred to the floor on POD#1 and continued to improve. She was discharge on POD#3 but will remain in hospital with the baby for HAKEEM observation for another 2 days. Home Meds and New Rx's Prescriptions: New ibuprofen 600 mg Tablet 600 mg PO Q6H PRN PRNQty: 60 0RF Continued docusate sodium [Colace] 100 mg capsule 100 mg PO BID Qty: 60 3RF ondansetron 4 mg tablet,disintegrating 4 mg PO BID Qty: 30 7RF clonidine HCl 0.1 mg tablet 0.1 mg PO HS PRN trazodone 50 mg tablet 50 mg PO HS Rx Instructions: 1 tab PO HS PRN early insomnia buprenorphine HCl 8 mg tablet, sublingual 8 mg sublingual DAILY fluoxetine 40 MG capsule 40 mg PO DAILY Qty: 90 3RF omeprazole 40 mg capsule,delayed release(DR/EC) 40 mg PO DAILY Qty: 90 1RF acetaminophen [Acetaminophen Extra Strength] 500 MG tablet 1,000 mg PO TID Qty: 180 0RF Discontinued aspirin 81 mg capsule 81 mg PO DAILY Qty: 90 2RF Discharge Instructions Activity:: NO lifting >20lbs Equipment/Supplies:: No Equipment Needed Diet:: As Tolerated OB:DS Summary Contraception Discussed Contraception Discussed: Yes Contraceptive Plan: Control Pill/Patch, Infant Gender-Baby A: Male weight: 6 lb 1.532 oz Status at Discharge Functional status at discharge: independent ambulation Overall status at discharge: patient is back to baseline Mental Status: mental status grossly normal Speech and Movement: speech and movement normal Mood: congruent mood Affect: normal affect Exam Physical Exam Vital signs: Temp Pulse Resp BP Pulse Ox 98.6 F 63 14 122/71 91 L 06/05/22 07:53 06/05/22 07:53 06/05/22 07:53 06/05/22 07:53 06/03/22 16:00 Vital Signs Reviewed: Yes Constitutional Constitutional: no acute distress and cooperative Detailed HEENT Exam Head: Present normocephalic and atraumatic Respiratory Exam Respiratory Exam: Normal Abdominal Exam Abdomen: Tender (mildly) Comments: Incision clean, dry, intact Fundal Exam Fundus: Below Umbilicus and Firm Extremities Exam Extremity Exam: Edema Detailed Neurological Exam Neurological: Present alert, oriented X3 and CN II-XII intact PFSH All Active Problems (Updated 06/05/22 @ 09:52 by Melody Miranda MD) Status post repeat low transverse section (Acute) Uterine contractions (Acute) Anxiety and depression (Chronic) Pt reports she has also been diagnosed with borderline personality d/o Fluoxetine, clonidine Gastroesophageal reflux disease (Chronic) Hepatitis C antibody test positive (Chronic 04/10/15) Undetected RNA level 04/2016, 03/2017 Tobacco use disorder (Chronic) Opioid dependence on agonist therapy (Chronic) Subutex 6 mg PO daily Housing or economic circumstances (Acute) Stress (Acute) Other specified counseling (Acute) Legal Concerns related to past DCF involvement with their son, Norman 10/03/15 who has lived with [facility] since Marijuana smoker (Acute) Medical History (Updated 06/05/22 @ 09:52 by Melody Miranda MD) Acute blood loss anemia History of abnormal cervical Pap smear History of alcoholism History of marijuana use Retroperitoneal hematoma Sciatica (03/20/09) Surgical History (Updated 06/05/22 @ 09:51 by Melody Miranda MD) section 2006 failure to dilate May 2022: Repeat, stat due to bradycardia, retroperitoneal hematoma Family History Mother Hyperthyroidism Mental disorder Manic depressive Neoplasm Ovarian CA Father Substance abuse Maternal Aunt , Breast CA No problems noted. Maternal Aunt , Breast CA No problems noted. Maternal Aunt , Maternal No problems noted. Grandfather , Cancer Neoplasm Prostate or colon? Grandfather , Liver CA Neoplasm Liver CA Other Liver disease Social History Smoking/Tobacco Use Status: Current every day Tobacco Type: cigarettes Smoking risk assessment performed?: Yes Alcohol Intake: former Drug use: Current Sobriety Substance use type: marijuana and opiates Details: MAT treatment (Subutex) Daily MJ use Do you feel safe in your relationship?: Yes History History 6 Para 2 Hx # Term Pregnancies 2 Multiple births 0 Hx # Pregnancies 0 Ectopic pregnancies 0 AB induced 1 Hx Number of Living Children 2 AB spontaneous 2 Past Pregnancies Del. Date GA/Weeks # Preg Succ Route Wgt Sex Labor Lgth Anesth esia Location Prov [facility] 11/07/06 40 No Yes 5 lb 5 oz Male [place] 10/03/15 39 No Yes 6 lb 12 oz Male [place] [facility], Dr Zavala 06/02/22 39 No Yes 6 lb 1 oz Julio lawski Delivery Date: 11/07/06 Last Updated by: Jessica Petty CNM PROM and IOLAvery Nowak for FTP Delivery Date: 10/03/15 Last Updated by: Jessica Petty CNM Norman, high Hep C viral load, Delivery Date: 06/02/22 Last Updated by: Melody Miranda MD Spontaneous labor prior to CS with STAT CS due to distress complicated by pelvic side wall hematoma. DS: Data Vitals/I&O Vitals and I&O: Vital Signs Temperature 98.6 F 06/05/22 07:53 Temperature Source Temporal Artery Scan 06/03/22 10:57 Temperature Source Oral 06/05/22 07:53 Pulse 63 06/05/22 07:53 Pulse Rhythm Regular 06/05/22 07:53 Pulse 85 06/03/22 10:48 Respiratory Rate 14 06/05/22 07:53 Respiratory Effort Normal 06/03/22 10:57 Respiratory Depth Normal 06/04/22 20:11 Respiratory Pattern Normal 06/03/22 10:57 Blood Pressure 122/71 06/05/22 07:53 Blood Pressure Mean 88 06/05/22 07:53 Blood Pressure Position Supine 06/03/22 04:30 Pulse Oximetry 91 L 06/03/22 16:00 Respiratory End-tidal CO2 29 06/02/22 06:20 Oxygen Delivery Method Nasal Cannula 06/03/22 04:30 Oxygen Flow Rate 1 06/03/22 04:30 Pain Level 6 06/03/22 12:44 Comment Difficult to obtain VS. Pt's pulse 40 reported by EMS, normal for pt as reported by pt. 06/02/22 03:20 Intake & Output 06/04/22 06/04/22 06/05/22 11:59 23:59 11:59 Output Total 300 / 300 Balance -300 / -300 Output: Urine 300 / 300 Other: Urine Color Yellow Urine Appearance Clear Urine Odor None
[2022-06-05] MEDS: Nicotine 21 MG/24 HR PATCH TD (09:58)
[2022-06-05] MEDS: FLUoxetine 20 MG CAP 40 MG PO (14:09)
== END 2022-06-05 14:20 | disposition home or self-care (01) | DRG 787 ==
LOC: OBS 04:11 → ICU 05:33 → OBS 06-03 11:42
PROVIDERS: Advanced Practice Midwife; Nurse Anesthetist, Certified Registered; Obstetrics & Gynecology; Admitting Provider Obstetrics & Gynecology; Visit Provider Obstetrics & Gynecology
PROC: 10D00Z1 Extraction of Products of Conception, Low, Open Approach (ICD-10-PCS; CPT 59514; principal; 2022-06-02 01:30)
DX: O34.211 Maternal care for low transverse scar from previous cesarean delivery (principal); D62 Acute posthemorrhagic anemia; F11.20 Opioid dependence, uncomplicated; O99.324 Drug use complicating childbirth; O98.42 Viral hepatitis complicating childbirth; O71.7 Obstetric hematoma of pelvis; Z37.0 Single live birth; N85.8 Other specified noninflammatory disorders of uterus; Z3A.39 39 weeks gestation of pregnancy; O99.334 Smoking (tobacco) complicating childbirth; F17.210 Nicotine dependence, cigarettes, uncomplicated; O99.344 Other mental disorders complicating childbirth; F41.8 Other specified anxiety disorders; F12.90 Cannabis use, unspecified, uncomplicated; B19.20 Unspecified viral hepatitis C without hepatic coma; O99.62 Diseases of the digestive system complicating childbirth; K21.9 Gastro-esophageal reflux disease without esophagitis; R63.6 Underweight; O90.81 Anemia of the puerperium; I95.89 Other hypotension
CPT/HCPCS: 59514; 52000; 49060; 36415; 36591; 71045; 76942; 80048; 80053; 82805; 85027; 86850; 86900; 86901; 86920; 87635; 96360; 74018; 85014; 85018; 85025; 85610; 88307; G0378; J0456; J0690; J1100; J1170; J2250; J2370; J2405; J2590; J2704; J2765; J3010; J3490; P9012; P9016; P9059

== ENCOUNTER 2024-10-12 11:16 | Outpatient (REF) | payer MEDICAID, SELFPAY ==
--- NOTE | 2024-10-12 10:45 | PAPFT_PTH ---
PATIENT: Radha Murdock LOC: [facility] U#:[id number] AGE/SX: 44/F ROOM: RE10/12/[address]: Zara Cutler NP : 1980 BED: DIS: 10/12/2024 SPEC #: [id number] RECD: 10/12/24 13:18 STATUS: TONI REQ #: [id number] EDMAR: 10/12/24 10:[address]: He YI,Zara DEPT: [facility] Cytology RECD BY: Yajaira Le ENTERED: 10/12/24 13:18 SP TYPE: PAPFT OTHR DR: Unknown,Unknown Tissues: 1 - CX/ENDOCX FOR PAP SMEARS Procedures: PAP THIN PREP/[facility] Screening HPV DNA PROBE Comments: [id number] (HPV 16 & 18/45) (CHLAMYDIA/GC)
[2024-10-13 12:47] LABS: Chlamydia Result Negative (Negative); GC Result Negative (Negative)
== END 2024-10-12 11:17 | disposition home or self-care (01) ==
LOC: LBN 11:16
PROVIDERS: Visit Provider Nurse Practitioner Women's Health
DX: Z11.3 Encounter for screening for infections with a predominantly sexual mode of transmission (principal); Z12.4 Encounter for screening for malignant neoplasm of cervix
CPT/HCPCS: 87491; 87591; 88142; 87480; 87510; 87624; 87660